=== PATIENT | female | born 1930 | race Caucasian/White ===

== ENCOUNTER 2016-10-03 08:14 | Outpatient (CLI) | payer MEDICARE | END 2016-10-03 08:15 | disposition home or self-care (01) | DX: E78.00 Pure hypercholesterolemia, unspecified (principal); I10 Essential (primary) hypertension ==

== ENCOUNTER 2016-12-15 11:35 | Outpatient (CLI) | payer MEDICARE ==
--- NOTE | 2016-12-15 12:03 | XRAY Report ---
TWO VIEW CHEST: 12/15/2016 CLINICAL INDICATION: Recently diagnosed with pneumonia in [place], recurrent cough and chest disco mfort. FINDINGS: Frontal and lateral views of the chest are compared to previous films of 10/26/2012. The cardiac silhouette is within normal limits. There is patchy left basilar infiltrate and patchy ri ght upper lobe infiltrate present. No effusion or pneumothorax is seen. IMPRESSION: PATCHY BILATERAL INFILTRATES. JOB #: [id number] EXT JOB #:[id number]
== END 2016-12-15 11:36 | disposition home or self-care (01) ==
LOC: DI 11:35
PROVIDERS: ATTEND Family Medicine
DX: J18.9 Pneumonia, unspecified organism (principal)
CPT/HCPCS: 71020

== ENCOUNTER 2016-12-29 12:45 | Outpatient (CLI) | payer OTHER ==
--- NOTE | 2016-12-29 13:39 | XRAY Report ---
TWO VIEW CHEST: 12/29/2016 CLINICAL INDICATION: Pneumonia followup. COMPARISON: 12/15/2016. FINDINGS: Frontal and lateral views of the chest demonstrate a normal cardiac silhouette. Bilateral infiltrates are improving. No effusion or pneumothorax is present. IMPRESSION: IMPROVING BILATERAL INFILTRATES. JOB #: [id number] EXT JOB #:[id number]
== END 2016-12-29 12:46 | disposition home or self-care (01) ==
LOC: DI 12:45
PROVIDERS: ATTEND Internal Medicine
DX: J18.9 Pneumonia, unspecified organism (principal)
CPT/HCPCS: 71020

== ENCOUNTER 2017-01-29 08:55 | Outpatient (CLI) | payer MEDICARE ==
--- NOTE | 2017-01-29 16:57 | XRAY Report ---
CHEST PA AND LATERAL: 01/29/2017 CLINICAL HISTORY: Pneumonia. COMPARISON: 12/29/2016. FINDINGS: The bones show no significant abnormality. Mild pectus deformity of the sternum is seen. F ocal osteoarthritis is noted in the mid thoracic spine with anterior spur formation and mild disk spa ce narrowing. The heart and great vessels are normal. The mediastinum is not widened. The pulmonary parenchyma demo nstrates no significant abnormality. The previously noted parenchymal disease in the left lower lobe and left lingula appear improved especially on the lateral projection. IMPRESSION: FURTHER IMPROVEMENT IS NOTED IN THE LUNGS COMPARED TO PRECEDING EXAM DATED 12/29/2016 . RESOLUTION OF PREVIOUSLY NOTED PNEUMONIA IS NOTED. :9 JOB #: [id number] EXT JOB #:[id number]
== END 2017-01-29 23:59 | disposition home or self-care (01) ==
LOC: DI 08:55
PROVIDERS: ATTEND Internal Medicine
DX: J18.9 Pneumonia, unspecified organism (principal)
CPT/HCPCS: 71020

== ENCOUNTER 2018-02-01 18:26 | Emergency (ER) | payer MEDICARE ==
[2018-02-01] MEDS ORDERED: LIDOCAINE-EPINEPH-TETRACAINE 3 ML SYRINGE TOP ONE (19:34)
[2018-02-01] MEDS ORDERED: BUFFERED LIDOCAINE 10 ML SYRINGE ONE (19:55)
[2018-02-01] MEDS: TETANUS/DIPHTHERIA/PERTUSSIS 0.5 ML SYRINGE IM ONE (20:04)
--- NOTE | 2018-02-01 20:20 | ED Physician Documentation ---
History of Present Illness - Stated complaint Stated Complaint: R HAND LAC - Chief complaint Chief Complaint: Laceration - History obtained from History obtained from: Patient - Additonal information Additional information: 87-year-old female presents the emergency department for evaluation of a laceration on the back of her hand which occurred just prior to arrival. The patient cut her hand on a sharp piece of metal. The patient denies any loss of function or sensory changes in the hand. The patient's tetanus is not up-to- date. No other areas of pain. The bleeding currently is under control. Symptoms are described as mild Review of Systems Constitutional: denies: Fever Skin: reports: Laceration (s) Musculoskeletal: reports: Extremity pain. denies: Joint pain Neurologic: denies: Head injury Immunocompromised: denies: Chemotherapy PD PAST MEDICAL HISTORY - Past Medical History Past Medical History: Yes Cardiovascular: Hypertension, High cholesterol Musculoskeletal: Osteoarthritis - Past Surgical History Past Surgical History: Yes Ortho: Other /DOCUMENTATION NURSE: Other - Allergies Allergies/Adverse Reactions: Allergies Allergy/AdvReac Type Severity Reaction Status Date / Time Sulfa (Sulfonamide Allergy Rash Verified 02/01/18 18:37 Antibiotics) - Social History Does the pt smoke?: No Smoking Status: Never smoker Does the pt drink ETOH?: Yes ETOH Use: Wine Does the pt have substance abuse?: No - Immunizations Immunizations are current?: No Immunizations: TDAP >10years/unknown PD ED PE NORMAL - General General: Alert and oriented X 3, No acute distress, Well developed/nourished - HEENT HEENT: Atraumatic, PERRL, EOMI, Ears normal - Derm Derm: Other (The patient has a 3 cm laceration on the dorsal aspect of the right hand. The patient has full active range of motion of the hand) - Extremities Extremities: Other (The patient has full active range of motion of her hand, normal strength of hand, normal sensation of the hand, brisk cap refill. On exploration of the wound the tendon is exposed however there appears to be no tendon laceration) - Neuro Neuro: Alert and oriented X 3, Normal speech - Psych Psych: Normal mood Results - Vitals Vitals: Vital Signs - 24 hr 02/01/18 18:35 Temperature 36.8 C Heart Rate 86 Respiratory 16 Rate Blood Pressure 156/74 H O2 Saturation 98 Oxygen O2 Source Room air Procedures - Laceration (location) Hand right Wound type: Linear Neurovascular status: Sensory intact, Motor intact, Vascular intact Tendon involvement: Tendon intact. No: Tendon Injury Anesthesia: Lidocaine 1% Wound Preparation: Betadine, Irrigated copiously NS, Wound explored, To the base. No: FB identified, FB removed Skin layer closure: Nylon, Interrupted, Sutures - enter # (4), Other ( Horizontal mattress sutures) Other: Patient tolerated well Complexity: Simple PD MEDICAL DECISION MAKING - ED course ED course: The patient's wound did expose the tendon, however there is no evidence of tendon laceration. The wound was closed using retention sutures. The patient appears appropriate at this time for discharge home. I discussed warning signs and recommended returning to the emergency department immediately for any worsening or any concerns. - Sepsis Event Vital Signs: Vital Signs - 24 hr 02/01/18 18:35 Temperature 36.8 C Heart Rate 86 Respiratory 16 Rate Blood Pressure 156/74 H O2 Saturation 98 Oxygen O2 Source Room air Departure - Departure Disposition: 01 Home, Self Care Clinical Impression: Laceration Condition: Good Instructions: ED Laceration All Follow-Up: Santino Bertrand MD [Primary Care Provider] - Within 1 week (These have your sutures removed in 7-10 days) Comments: Please return to the emergency department for worsening symptoms or any concerns
[2018-02-01 20:33] VITALS: BP 143/57
== END 2018-02-01 20:33 | disposition home or self-care (01) ==
LOC: ED 18:26
DX: S61.411A Laceration without foreign body of right hand, initial encounter (principal); W45.8XXA Other foreign body or object entering through skin, initial encounter; I10 Essential (primary) hypertension; E78.00 Pure hypercholesterolemia, unspecified; Z23 Encounter for immunization
CPT/HCPCS: 12002; 90471; 99282; 99283

== ENCOUNTER 2018-04-03 14:42 | Outpatient (CLI) | payer MEDICARE ==
[2018-04-03 15:13] LABS: HGB - HEMOGLOBIN 12.5 g/dL (12.0-16.0); MEAN CORPUSCULAR HEMOGLOBIN 31.1 pg (27.0-31.0); MEAN CORPUSCULAR HGB CONC 34.7 g/dL (32.0-36.0); MEAN CORPUSCULAR VOLUME 89.6 fL (81.0-99.0); MEAN PLATELET VOLUME 7.6 fL (7.9-10.8); RED BLOOD COUNT 4.01 10^6/uL (4.20-5.40); RED CELL DISTRIBUTION WIDTH 13.1 % (12.0-15.0); WHITE BLOOD COUNT 4.6 x10^3/uL (4.8-10.8)
== END 2018-04-03 14:43 | disposition home or self-care (01) ==
LOC: LAB 14:42
PROVIDERS: ATTEND Ophthalmology
DX: H02.423 Myogenic ptosis of bilateral eyelids (principal)
CPT/HCPCS: 36415; 81599; 83519; 85027; 85651; 86140; 86255

== ENCOUNTER 2018-04-20 21:26 | Outpatient (CLI) | payer MEDICARE | END 2018-04-20 21:27 | disposition critical access hospital (66) | LOC: EMS 21:26 | PROVIDERS: ATTEND Surgery | DX: R07.81 Pleurodynia (principal); W10.9XXA Fall (on) (from) unspecified stairs and steps, initial encounter; Y92.009 Unspecified place in unspecified non-institutional (private) residence as the place of occurrence of the external cause | CPT/HCPCS: A0425; A0427 ==

== ENCOUNTER 2018-04-20 21:38 | Observation (INO) | payer MEDICARE ==
--- NOTE | 2018-04-20 22:55 | ED Physician Documentation ---
PD HPI TRUNK INJURY - Stated complaint Stated Complaint: FELL DOWN STAIRS - LEFT RIB PAIN - Chief complaint Chief Complaint: Trauma Ch/Bk - History obtained from History obtained from: Patient, EMS - History of Present Illness Location: Posterior chest, Left chest Type of injury: Fall Timing - onset: Today Timing - details: Abrupt onset Quality: Pain Worsened by: Moving, Palpating Where injury occured: Home Similar symptoms before: Has not had sx before Recently seen: Not recently seen - Additional information Additional information: patient is an 87 year old female who is brought in by ems after falling. patient states that she was walking up the stairs and miss stepped and fell backwards. Patient does not think that she had LOC but is unsure. patient takes 325 aspirin daily. patient reports that the worst pain in is her left back. Review of Systems Ten Systems: 10 systems reviewed and negative Cardiac: reports: Chest pain / pressure Musculoskeletal: reports: Extremity pain, Extremity swelling Neurologic: reports: LOC. denies: Confused, Altered mental status, Headache PD PAST MEDICAL HISTORY - Past Medical History Past Medical History: No Cardiovascular: Hypertension, High cholesterol Respiratory: None Neuro: None Endocrine/Autoimmune: None GI: None BAR USEFUL OR BUSSER: None : None HEENT: None Psych: None Musculoskeletal: Osteoarthritis Derm: None - Past Surgical History Past Surgical History: Yes Ortho: Other /BAR USEFUL OR BUSSER: Other - Allergies Allergies/Adverse Reactions: Allergies Allergy/AdvReac Type Severity Reaction Status Date / Time Sulfa (Sulfonamide Allergy Rash Verified 04/20/18 21:45 Antibiotics) - Social History Does the pt smoke?: No Smoking Status: Never smoker Does the pt drink ETOH?: Yes ETOH Use: Wine Does the pt have substance abuse?: No - Immunizations Immunizations are current?: No Immunizations: TDAP >10years/unknown - POLST Patient has POLST: No PD ED PE NORMAL - Vitals Vital signs reviewed: Yes - General General: Alert and oriented X 3 - HEENT HEENT: Atraumatic, Moist mucous membranes - Cardiac Cardiac: RRR - Abdomen Abdomen: Soft - Neuro Neuro: Alert and oriented X 3, No motor deficit, Normal speech Eye Opening: Spontaneous Motor: Obeys Commands Verbal: Oriented GCS Score: 15 PD ED PE EXPANDED - Neck Neck: Bony TTP - Cardiac Cardiac: Chest wall TTP (tenderness to palpation of posterior chest on the left) - Extremities Extremities: Left leg (ecchymosis of left cormier with no tenderness) Results - Vitals Vitals: Vital Signs - 24 hr 04/20/18 04/20/18 21:38 22:49 Temperature 36.5 C Heart Rate 89 80 Respiratory 20 20 Rate Blood Pressure 186/81 H 156/73 H O2 Saturation 94 97 Oxygen O2 Source Room air - EKG (time done) 2145 Rate: Rate (enter#) (83) Rhythm: NSR Pheba: LAD Intervals: Normal OH QRS: Normal Ischemia: Normal ST segments - Rads (name of study) ct head Radiology: Final report received (normal) ct cervical spine Radiology: Final report received (no acute fracture or dislocation) left rib series Radiology: Final report received, Discussed with rads (7th rib fracture with apical pneumo) PD MEDICAL DECISION MAKING - ED course Complexity details: reviewed old records, reviewed results, re-evaluated patient, considered differential, d/w patient, d/w device sales consultant ED course: Patient was seen and examined at bedside. patient had already been treated for pain. ekg was performed and was normal sinus. imaging was ordered. When patient returned from imaging she was still in pain and treated with morphine 4mg and lidoderm patch. radiologist called and stated there was a left posterior 7th rib fracture and a small pneumo. Case was discussed with contract admin hospitalist and patient was placed in observation for further care. - Sepsis Event Vital Signs: Vital Signs - 24 hr 04/20/18 04/20/18 21:38 22:49 Temperature 36.5 C Heart Rate 89 80 Respiratory 20 20 Rate Blood Pressure 186/81 H 156/73 H O2 Saturation 94 97 Oxygen O2 Source Room air Departure - Departure Disposition: ED Place in Observation Clinical Impression: Fracture of rib, Pneumothorax on left Condition: Good
--- NOTE | 2018-04-20 22:55 | XRAY Report ---
Reason: fall, left sided posterior rib pain Procedure Date: 04/20/2018 Accession Number: [id number] / [id number] Procedure: XR - Ribs w/PA Chest LT CPT Code: FULL RESULT: EXAM: LEFT RIB RADIOGRAPHY EXAM DATE: 04/20/2018 10:47 PM. CLINICAL HISTORY: Fall, left sided posterior rib pain. COMPARISON: CHEST 2 VIEW PA/LAT 01/29/2017 9:00 AM. TECHNIQUE: 1 view of the chest and 2 views of the ribs. FINDINGS: Bones: There is fracture through the posterior left seventh rib. Lungs: No focal opacities. No pneumothorax. No pleural effusions. Mediastinum: Heart and mediastinal contours are unremarkable. Other: None. IMPRESSION: 1. There is fracture through the posterior left seventh rib. 2. No evidence of focal infiltrate or pneumothorax. RADIA
--- NOTE | 2018-04-20 23:00 | CT Report ---
Reason: fall possible loc Procedure Date: 04/20/2018 Accession Number: [id number] / [id number] Procedure: CT - Head W/O CPT Code: FULL RESULT: EXAM: CT HEAD EXAM DATE: 04/20/2018 10:46 PM. CLINICAL HISTORY: Follow-up. COMPARISON: CERVICAL SPINE W/O 04/20/2018 10:15 PM. TECHNIQUE: Multiaxial CT images were obtained from the foramen magnum to the vertex. Reformats: Sagittal and coronal. IV contrast: None. In accordance with CT protocol optimization, one or more of the following dose reduction techniques were utilized for this exam: automated exposure control, adjustment of mA and/or KV based on patient size, or use of iterative reconstructive technique. FINDINGS: Parenchyma: No intraparenchymal hemorrhage. No evidence of mass, midline shift, or CT findings of infarction. Gallardo-white differentiation is distinct. Periventricular white matter hypodensity may represent small vessel ischemic disease. Extraaxial Spaces: Normal for age. No subdural or epidural collections identified. Ventricles: Normal in size and position. Sinuses and Orbits: Imaged paranasal sinuses, orbits, and mastoids show no significant abnormality. Bones: No evidence of fracture or calvarial defect. Other: There is mild posterior left scalp soft tissue swelling. IMPRESSION: No acute intracranial CT abnormality. RADIA
--- NOTE | 2018-04-20 23:08 | CT Report ---
Reason: fall, distracting injury Procedure Date: 04/20/2018 Accession Number: [id number] / [id number] Procedure: CT - Cervical Spine W/O CPT Code: FULL RESULT: EXAM: CT CERVICAL SPINE WITHOUT CONTRAST DATE: 04/20/2018 10:45 PM. HISTORY: Fall, distracting injury. COMPARISONS: RIBS W/PA CHEST LT 04/20/2018 10:23 PM. TECHNIQUE: Thin-section axial images were acquired of the cervical spine without contrast. Post-processing: Coronal and sagittal reformats. Other: None. In accordance with CT protocol optimization, one or more of the following dose reduction techniques were utilized for this exam: automated exposure control, adjustment of mA and/or KV based on patient size, or use of iterative reconstructive technique. FINDINGS: Alignment: No evidence of dislocation. Bones: No fracture or bone lesion. Interspace Levels/Facets: No evidence of significant degenerative disease. Musculature: No significant abnormalities are seen. Other: There is a small left apical pneumothorax. IMPRESSION: 1. No evidence of cervical spine fracture or dislocation. 2. There is a small left apical pneumothorax. RADIA The above findings were discussed with Bob Owen by Dr. Jelani Coates at 23:07 hrs on 04/20/18.
[2018-04-20] MEDS ORDERED: MORPHINE 2 MG/ML CARPUJECT IVP STA (23:18)
[2018-04-20] MEDS ORDERED: LIDOCAINE PATCH 5% TOP STA (23:19)
[2018-04-21] MEDS ORDERED: ACETAMINOPHEN 325 MG TABLET PO PRN (00:02)
[2018-04-21] MEDS ORDERED: SODIUM CHLORIDE FLUSH 0.9% 10 ML SYRINGE IVP PRN (00:02)
--- NOTE | 2018-04-21 00:14 | CONSULTATION NOTE ---
Referring Provider Name of Referring Provider:: MD Lexie Consult Date: 04/20/18 Chief Complaint - Chief Complaint Chief Complaint: LEFT rib fracture and small apical pneumothorax History of Present Illness - Admitted From Admitted From:: Not admitted placed in observation from [facility] ED - History Obtained From Records Reviewed: Yes History obtained from: Patient, chart and Dr. Owen Exam Limitations: None - History of Present Illness HPI Comment/Other: Dr. Owen called and asked that I place this patient in observation for her left rib fracture associated with a small left apical pneumothorax. The patient was going up 4 steps when she fell ending up on the hard wood floor of her kitchen. She states she did not lose consciousness but does not remember the entirety of the fall. She worked her way to the kitchen table and got up. She finished washing the dishes but was in considerable pain. Following washing the dishes she got her cane and went back up those 4 steps climbing into bed. She was thinking that if she got some sleep that tomorrow morning she would be much better. She then thought about the situation more and realized that she got up several times a night normally to urinate and that she could not do it in the amount of pain that she was then. She then called her [id number] who live nearby who brought her to the emergency department in his car. In getting into the car she realized she never could have made it until the next morning. Her current complaint is back pain at the area of the rib fracture. Otherwise she is thirsty and denies nausea, vomiting, abdominal pain, loss of consciousness, headache, or change in her mentation. Her left eye is clearly different than her right. She states that she is currently under the care of 3 ophthalmologists and they cannot figure out what the problem is. History - Past Medical History Cardiovascular: reports: Hypertension, High cholesterol Respiratory: reports: None Neuro: reports: None Endocrine/Autoimmune: reports: None GI: reports: None PHARMACY BILLING ADJUDICATOR: reports: None : reports: None HEENT: reports: None Psych: reports: None Musculoskeletal: reports: Osteoarthritis Derm: reports: None MRSA Hx?: No - Past Surgical History Ortho: reports: Other /PHARMACY BILLING ADJUDICATOR: reports: Other - POLST Patient has POLST: No Meds/Allgy - Allergies Allergies/Adverse Reactions: Allergies Allergy/AdvReac Type Severity Reaction Status Date / Time Sulfa (Sulfonamide Allergy Rash Verified 04/20/18 21:45 Antibiotics) Review of Systems - Constitutional Constitutional: denies: Fatigue, Fever, Chills, Malaise - Eyes Eyes: reports: Blurred vision (Left eye but she can still see me with the right eye covered.). denies: Pain - Ears, Nose & Throat Ears, Nose & Throat: denies: Ear pain - Cardiovascular Cariovascular: denies: Irregular heart rate, Palpitations, Chest pain - Respiratory Respiratory: denies: Cough, Sputum production, Wheezing, Snoring - Gastrointestinal Gastrointestinal: denies: Abdominal pain, Abdominal distention - Musculoskeletal Musculoskeletal: reports: Back pain (At the area of her rib fracture.) - Integumentary Integumentary: denies: Rash - Neurological Neurological: denies: General weakness, Focal weakness, Headache, Numbness - Hematologic/Lymphatic Hematologic/Lymphatic: denies: Anemia Exam - Vital Signs Reviewed Vital Signs: Yes Vital Signs: Vital Signs x48h Temp Pulse Resp BP Pulse Ox 04/20/18 22:49 80 20 156/73 H 97 04/20/18 21:38 36.5 C 89 20 186/81 H 94 - Physical Exam General Appearance: positive: No acute distress Eyes Bilateral: positive: No lid inflammation, Conjunctivae nml, No scleral icterus ENT: positive: Dry mucous membranes Neck: positive: Trachea midline Respiratory: positive: Chest non-tender, No respiratory distress, Breath sounds nml Cardiovascular: positive: Regular rate & rhythm Abdomen: positive: Non-tender, No organomegaly, Nml bowel sounds, No distention Skin: positive: Color nml Extremities: positive: Other (Bruising in the left leg down near the ankle anteriorly and laterally.) Neurologic/Psychiatric: positive: Oriented x3 Conclusion/Plan - Diagnosis Diagnosis: Left seventh rib fracture posteriorly associated with a small apical pneumothorax. - Plan Plan: Place her in observation. The patient states that she wants to be home in time for the [employer] game tomorrow at 1 in the afternoon. I explained that I would check labs and x-rays on her in the morning and if these look okay she can be discharged home with a follow-up with me in a week. If her labs or x-rays are worse then I would deputy general counsel her against going home. IV fluids and clear liquids have been written for. Pain medication has been written for. Proton pump inhibition has been written for. Teds and Venodyne's have been written for for prophylaxis against deep venous thrombosis. I asked the patient to let us know if there is any way we can make her stay here [facility] more comfortable to please let us know when she stated that she would. 45 minutes of kxcw-sm-tocs time spent with the patient, the majority of which was spent in discussion, coordination of care, and completion of the requisite paperwork Dragon disclaimer: This document was created in part using voice recognition technology. Because of the inherent limitations of the system ([employer] Dictate user manual states that the licensee understands that speech recognition is a statistical process and that recognition errors are inherent in the process), occasional same sounding word substitutions and grammatical errors do occur and persist despite proofreading. Please read this document for context. - Diagnostic Imaging Results Diagnostic Imaging Results: positive: Final report reviewed, Read independently - EKG Results EKG Interpreted Independently: No
[2018-04-21] MEDS ORDERED: D5NS W/20 MEQ KCL 1,000 ML IV SCH (01:00)
[2018-04-21] MEDS: SODIUM CHLORIDE FLUSH 0.9% 10 ML SYRINGE IVP SCH ×2 (01:24→08:08)
[2018-04-21] MEDS: HYDROmorphone 0.5 MG/0.5 ML SYRINGE IVP PRN ×2 (01:24→05:46)
[2018-04-21 04:35] LABS: BASOPHILS % (AUTO) 0.5 %; EOSINOPHILS % (AUTO) 0.1 %; HGB - HEMOGLOBIN 10.9 g/dL (12.0-16.0); LYMPHOCYTES # (AUTO) 0.9 10^3/uL (1.5-3.5); MEAN CORPUSCULAR HEMOGLOBIN 30.8 pg (27.0-31.0); MEAN CORPUSCULAR HGB CONC 34.2 g/dL (32.0-36.0); MEAN CORPUSCULAR VOLUME 89.8 fL (81.0-99.0); MONOCYTES # (AUTO) 0.6 10^3/uL (0.0-1.0); MONOCYTES % (AUTO) 7.5 %; NEUTROPHILS # (AUTO) 5.9 10^3/uL (1.5-6.6); NEUTROPHILS % (AUTO) 79.9 %; PLT - PLATELET COUNT 216 10^3/uL (130-450); RED BLOOD COUNT 3.54 10^6/uL (4.20-5.40); RED CELL DISTRIBUTION WIDTH 12.9 % (12.0-15.0); WHITE BLOOD COUNT 7.4 x10^3/uL (4.8-10.8)
[2018-04-21 04:48] LABS: ALBUMIN 3.3 g/dL (3.2-5.5); ALBUMIN/GLOBULIN RATIO 1.2 (1.0-2.2); BILIRUBIN,TOTAL 0.5 mg/dL (0.2-1.0); CALCIUM 8.7 mg/dL (8.5-10.3); CREATININE 0.9 mg/dL (0.4-1.0); TOTAL PROTEIN 6.1 g/dL (6.7-8.2)
[2018-04-21] MEDS: HYDROcod/ACETAM 5/325 MG TABLET PO PRN ×2 (06:15→11:01)
[2018-04-21] MEDS ORDERED: PANTOPRAZOLE 40 MG TABLET PO SCH (07:00)
[2018-04-21] MEDS ORDERED: POLYETHYLENE GLYCOL 3350 17 GM PACKET PO SCH (09:00)
--- NOTE | 2018-04-21 09:05 | XRAY Report ---
Reason: Apical pneumothorax - larger? Procedure Date: 04/21/2018 Accession Number: [id number] / [id number] Procedure: XR - Chest 2 View X-Ray CPT Code: 76980 FULL RESULT: EXAM: CHEST RADIOGRAPHY EXAM DATE: 04/21/2018 08:17 AM. CLINICAL HISTORY: Known left apical pneumothorax - larger?. COMPARISON: Chest radiograph 04/20/[address] cervical spine 04/20/2018 2215 hrs. TECHNIQUE: 2 views. FINDINGS: Lungs/Pleura: Minimal left basal opacity, probably atelectasis. Lungs are otherwise clear. There is a probable minimal left apical pneumothorax probably similar to that seen on the comparison CT cervical spine. Mediastinum: Heart and mediastinal contours are unremarkable. Other: Acute mildly displaced fractures of the left posterior seventh and eighth ribs. IMPRESSION: 1. Minimal left apical pneumothorax is probably similar to that seen on the comparison CT cervical spine. 2. Minimal left basal opacity, probably atelectasis. 3. Left-sided rib fractures. RADIA
--- NOTE | 2018-04-21 11:07 | DISCHARGE SUMMARY ---
"Discharge Summary Admit Date: 04/20/18 Discharge Date: 04/21/18 Discharging Provider: Kyle Peterson MD Primary Care Provider: Santino Bertrand Code Status: Attempt Resuscitation Condition at Discharge: Good Discharge Disposition: 01 Home, Self Care - DIAGNOSES Admission Diagnoses: Fall resulting in LEFT rib fractures and small LEFT apical pneumothorax Discharge Diagnoses with Status of Each Condition: Repeat chest x-ray defined LEFT 7th and 8th rib fractures non-displaced and LEFT apical pneumothorax stable - HPI History of Present Illness: 87 year old fell about 12 hours ago sustaining the injuries detailed above. Observed to ensure that pneumothorax did not worsen. It did not. - CONSULTS | PROCEDURES Consultations: Al Procedures: None. - HOSPITAL COURSE Hospital Course: See above. - ALLERGIES Allergies/Adverse Reactions: Allergies Allergy/AdvReac Type Severity Reaction Status Date / Time Sulfa (Sulfonamide Allergy Rash Verified 04/20/18 21:45 Antibiotics) - MEDICATIONS Home Medications: Ambulatory Orders Medication Instructions Recorded Confirmed Docusate Sodium 250Mg Capsule 250 mg PO DAILY #10 capsule 04/21/18 [Colace 250Mg Capsule] Hydrocodone/Acetaminophen [[place] 1 each PO Q4H #20 tablet 04/21/18 5-325 Tablet] - PHYSICAL EXAM AT DISCHARGE General Appearance: positive: No acute distress Eyes Bilateral: positive: No lid inflammation, Conjunctivae nml, No scleral icterus ENT: positive: No signs of dehydration Neck: positive: Trachea midline Respiratory: positive: Other (Tender left posterior commesurate with rib fractures.) Cardiovascular: positive: Regular rate & rhythm Abdomen: positive: Non-tender, No organomegaly, Nml bowel sounds, No distention Skin: positive: Color nml Extremities: positive: Other (Ecchymosis at LEFT lower leg just above ankle.) Neurologic/Psychiatric: positive: Oriented x3 (Wants to get home in time for [employer] game.) - LABS Result Diagrams: 04/21/18 04:10 04/21/18 04:10"
--- NOTE | 2018-04-21 11:11 | Discharge Plan ---
Discharge Plan Disposition: Home, Self Care Condition: Good Prescriptions: Docusate Sodium 250Mg Capsule [Colace 250Mg Capsule] 250 mg PO DAILY #10 capsule Hydrocodone/Acetaminophen [[place] 5-325 Tablet] 1 each PO Q4H #20 tablet Diet: Regular Activity Restrictions: No Restrictions Shower Restrictions: No Driving Restrictions: Yes (Until cleared by me or primary physician.) Assistance Devices: Other (Patient has a cane at home.) Weight Bearing: Full Weight No Smoking: If you smoke, Please STOP! Call for help. Follow-up with: Santino Bertrand MD [Primary Care Provider] - Kyle Peterson MD [Provider Admit Priv/Credential] -
[2018-04-21 11:26] VITALS: BP 143/72
== END 2018-04-21 11:38 | disposition home or self-care (01) ==
LOC: EDBD → EDUNIT# → ED 21:38 → MS3 04-21 00:02
PROVIDERS: ADMIT Surgery; ATTEND Surgery
DX: S27.0XXA Traumatic pneumothorax, initial encounter (principal); S22.42XA Multiple fractures of ribs, left side, initial encounter for closed fracture; S80.12XA Contusion of left lower leg, initial encounter; W10.9XXA Fall (on) (from) unspecified stairs and steps, initial encounter; Y92.000 Kitchen of unspecified non-institutional (private) residence as the place of occurrence of the external cause; I10 Essential (primary) hypertension; H53.8 Other visual disturbances; Z79.82 Long term (current) use of aspirin
CPT/HCPCS: 36415; 70450; 71046; 71101; 72125; 80053; 85025; 93005; 96361; 96374; 96375; 96376; 99284; A9270; G0378; J1170

== ENCOUNTER 2018-09-11 15:48 | Outpatient (CLI) | payer MEDICARE ==
--- NOTE | 2018-09-12 08:32 | XRAY Report ---
Reason: DORSALGIA,UNSPECIFIED Procedure Date: 09/11/2018 Accession Number: [id number] / [id number] Procedure: XR - Thoracic Spine 2 View CPT Code: FULL RESULT: EXAM: THORACIC SPINE RADIOGRAPHY EXAM DATE: 09/11/2018 04:19 PM. CLINICAL HISTORY: Dorsalgia, unspecified. COMPARISON: Chest 2 view 04/21/2018 7:40 AM. TECHNIQUE: 2 views. FINDINGS: Alignment: No spondylolisthesis or discrete scoliosis. Bones: The mild anterior compression fracture at T6, T7, and T8 with overall kyphosis of 36 degrees is again noted, quite similar to the prior lateral view of the chest x-ray. No new compression fracture recognized. Disks: Moderate degenerative disk disease at T7-T8 again noted, minimal interval changes. Soft Tissues: The visualized lungs and cardiomediastinal again demonstrated elevated right hemidiaphragm, post-op change of the cholecystectomy without significant interval changes. IMPRESSION: No significant interval change of the mild anterior compression fracture at T6, T7 and T8 with 36 degrees kyphosis. RADIA
== END 2018-09-11 15:49 | disposition home or self-care (01) ==
LOC: DI 15:48
PROVIDERS: ATTEND Internal Medicine
DX: M48.54XA Collapsed vertebra, not elsewhere classified, thoracic region, initial encounter for fracture (principal); M40.204 Unspecified kyphosis, thoracic region
CPT/HCPCS: 72070

== ENCOUNTER 2019-03-25 13:16 | Outpatient (CLI) | payer MEDICARE ==
[2019-03-25 13:38] LABS: BASOPHILS # (AUTO) 0.1 10^3/uL (0.0-0.1); BASOPHILS % (AUTO) 0.8 %; EOSINOPHILS # (AUTO) 0.1 10^3/uL (0.0-0.7); EOSINOPHILS % (AUTO) 2.2 %; HGB - HEMOGLOBIN 10.8 g/dL (12.0-16.0); LYMPHOCYTES # (AUTO) 1.1 10^3/uL (1.5-3.5); MEAN CORPUSCULAR HEMOGLOBIN 29.4 pg (27.0-31.0); MEAN CORPUSCULAR HGB CONC 32.6 g/dL (32.0-36.0); MEAN CORPUSCULAR VOLUME 90.2 fL (81.0-99.0); MEAN PLATELET VOLUME 9.2 fL (7.9-10.8); MONOCYTES # (AUTO) 0.5 10^3/uL (0.0-1.0); MONOCYTES % (AUTO) 7.3 %; NEUTROPHILS # (AUTO) 4.6 10^3/uL (1.5-6.6); NEUTROPHILS % (AUTO) 72.4 %; PLT - PLATELET COUNT 275 10^3/uL (130-450); RED BLOOD COUNT 3.67 10^6/uL (4.20-5.40); RED CELL DISTRIBUTION WIDTH 13.2 % (12.0-15.0); WHITE BLOOD COUNT 6.3 x10^3/uL (4.8-10.8)
[2019-03-25 14:08] LABS: HB2 TOTAL 11.1 g/dL; HEMOGLOBIN A1C 0.42 g/dL; HEMOGLOBIN A1C % 5.6 % (4.6-6.2)
[2019-03-25 14:14] LABS: THYROID STIMULATING HORMONE 1.87 uIU/mL (0.34-5.60)
[2019-03-25 14:16] LABS: FREE T4 (FREE THYROXINE) 0.81 ng/dL (0.58-1.64)
== END 2019-03-25 13:17 | disposition home or self-care (01) ==
LOC: LAB 13:16
PROVIDERS: ATTEND Family Medicine
DX: R53.81 Other malaise (principal)
CPT/HCPCS: 36415; 83036; 84439; 84443; 85025

== ENCOUNTER 2019-04-08 12:11 | Outpatient (CLI) | payer MEDICARE ==
[2019-04-08 12:34] LABS: BASOPHILS % (AUTO) 0.7 %; EOSINOPHILS # (AUTO) 0.1 10^3/uL (0.0-0.7); EOSINOPHILS % (AUTO) 1.9 %; HGB - HEMOGLOBIN 10.9 g/dL (12.0-16.0); LYMPHOCYTES # (AUTO) 0.8 10^3/uL (1.5-3.5); LYMPHOCYTES % (AUTO) 15.5 %; MEAN CORPUSCULAR HEMOGLOBIN 29.6 pg (27.0-31.0); MEAN CORPUSCULAR HGB CONC 32.2 g/dL (32.0-36.0); MEAN CORPUSCULAR VOLUME 92.1 fL (81.0-99.0); MEAN PLATELET VOLUME 8.9 fL (7.9-10.8); MONOCYTES # (AUTO) 0.5 10^3/uL (0.0-1.0); MONOCYTES % (AUTO) 8.6 %; NEUTROPHILS # (AUTO) 3.9 10^3/uL (1.5-6.6); NEUTROPHILS % (AUTO) 73.1 %; PLT - PLATELET COUNT 254 10^3/uL (130-450); RED BLOOD COUNT 3.68 10^6/uL (4.20-5.40); RED CELL DISTRIBUTION WIDTH 13.2 % (12.0-15.0); WHITE BLOOD COUNT 5.3 x10^3/uL (4.8-10.8)
[2019-04-08 12:51] LABS: CALCIUM 8.9 mg/dL (8.5-10.3); CREATININE 0.9 mg/dL (0.4-1.0)
[2019-04-08 13:00] LABS: HEMOGLOBIN A1C 0.39 g/dL; HEMOGLOBIN A1C % 5.4 % (4.6-6.2)
[2019-04-08 16:06] LABS: BILIRUBIN,URINE NEGATIVE (NEGATIVE); GLUCOSE, URINE (UA) NEGATIVE (NEGATIVE); KETONES,URINE (UA) NEGATIVE (NEGATIVE); LEUKOCYTE ESTERASE, URINE NEGATIVE (NEGATIVE); NITRITE,URINE NEGATIVE (NEGATIVE); OCCULT BLOOD,URINE SMALL (NEGATIVE); PH,URINE 5.5 PH (5.0-7.5); PROTEIN,URINE NEGATIVE (NEGATIVE); UROBILINOGEN,URINE 0.2 (NORMAL) E.U./dL (NORMAL)
[2019-04-08 16:08] LABS: CLARITY,URINE CLEAR (CLEAR)
[2019-04-08 16:23] LABS: BACTERIA,URINE Few /HPF (None Seen); CRYSTALS,URINE 26-50 Ca Oxalate /LPF; MUCUS,URINE Few Strands; RBC,URINE 0-5 /HPF (0-5); SQUAMOUS EPITHELIAL CELL,UR FEW Squamous (<= Few)
== END 2019-04-08 12:12 | disposition home or self-care (01) ==
LOC: LAB 12:11
PROVIDERS: ATTEND Orthopaedic Surgery
DX: Z01.818 Encounter for other preprocedural examination (principal); Z13.1 Encounter for screening for diabetes mellitus; R73.9 Hyperglycemia, unspecified; N39.9 Disorder of urinary system, unspecified
CPT/HCPCS: 36415; 80048; 81001; 81003; 83036; 85025; 93005

== ENCOUNTER 2019-06-26 13:59 | Outpatient (CLI) | payer MEDICARE ==
[2019-06-26 14:12] LABS: ABSOLUTE RETICS # AUTO 0.074 10^6/uL (0.020-0.110); BASOPHILS # (AUTO) 0.1 10^3/uL (0.0-0.1); BASOPHILS % (AUTO) 0.9 %; EOSINOPHILS # (AUTO) 0.1 10^3/uL (0.0-0.7); EOSINOPHILS % (AUTO) 1.7 %; HGB - HEMOGLOBIN 10.2 g/dL (12.0-16.0); LYMPHOCYTES % (AUTO) 14.5 %; MEAN CORPUSCULAR HEMOGLOBIN 30.2 pg (27.0-31.0); MEAN CORPUSCULAR HGB CONC 31.4 g/dL (32.0-36.0); MEAN CORPUSCULAR VOLUME 96.2 fL (81.0-99.0); MEAN PLATELET VOLUME 8.4 fL (7.9-10.8); MONOCYTES # (AUTO) 0.5 10^3/uL (0.0-1.0); MONOCYTES % (AUTO) 7.1 %; NEUTROPHILS # (AUTO) 5.2 10^3/uL (1.5-6.6); NEUTROPHILS % (AUTO) 75.2 %; PLT - PLATELET COUNT 399 10^3/uL (130-450); RED BLOOD COUNT 3.38 10^6/uL (4.20-5.40); RED CELL DISTRIBUTION WIDTH 13.6 % (12.0-15.0)
== END 2019-06-26 14:00 | disposition home or self-care (01) ==
LOC: LAB 13:59
PROVIDERS: ATTEND Family Medicine
DX: D64.9 Anemia, unspecified (principal)
CPT/HCPCS: 36415; 85025; 85045

== ENCOUNTER 2019-08-22 13:35 | Outpatient (CLI) | payer MEDICARE ==
--- NOTE | 2019-08-22 17:02 | XRAY Report ---
Reason: R ANKLE PAIN Procedure Date: 08/22/2019 Accession Number: [id number] / [id number] Procedure: XR - Ankle 3 View RT CPT Code: Final Report FULL RESULT: EXAM: RIGHT ANKLE RADIOGRAPHY EXAM DATE: 08/22/2019 01:53 PM. CLINICAL HISTORY: R ANKLE PAIN. COMPARISON: None. TECHNIQUE: 3 views. FINDINGS: Bones: Normal. No fractures or bone lesions. Joints: Normal. No effusion. No subluxations. The ankle mortise is normally aligned. Soft Tissues: Normal. No soft tissue swelling. IMPRESSION: No acute displaced fracture or malalignment. RADIA
== END 2019-08-22 13:36 | disposition home or self-care (01) ==
LOC: DI 13:35
PROVIDERS: ATTEND Podiatrist
DX: M25.571 Pain in right ankle and joints of right foot (principal)

== ENCOUNTER 2019-09-03 14:31 | Outpatient (CLI) | payer MEDICARE ==
[2019-09-03 14:59] LABS: BASOPHILS # (AUTO) 0.1 10^3/uL (0.0-0.1); BASOPHILS % (AUTO) 0.7 %; BILIRUBIN,URINE NEGATIVE (NEGATIVE); EOSINOPHILS # (AUTO) 0.1 10^3/uL (0.0-0.7); EOSINOPHILS % (AUTO) 0.8 %; GLUCOSE, URINE (UA) NEGATIVE (NEGATIVE); HGB - HEMOGLOBIN 10.7 g/dL (12.0-16.0); KETONES,URINE (UA) NEGATIVE (NEGATIVE); LEUKOCYTE ESTERASE, URINE TRACE (NEGATIVE); LYMPHOCYTES # (AUTO) 0.9 10^3/uL (1.5-3.5); LYMPHOCYTES % (AUTO) 10.3 %; MEAN CORPUSCULAR HEMOGLOBIN 30.5 pg (27.0-31.0); MEAN CORPUSCULAR HGB CONC 32.6 g/dL (32.0-36.0); MEAN CORPUSCULAR VOLUME 93.4 fL (81.0-99.0); MEAN PLATELET VOLUME 8.9 fL (7.9-10.8); MONOCYTES # (AUTO) 0.6 10^3/uL (0.0-1.0); MONOCYTES % (AUTO) 6.9 %; NEUTROPHILS # (AUTO) 7.2 10^3/uL (1.5-6.6); NEUTROPHILS % (AUTO) 80.7 %; NITRITE,URINE NEGATIVE (NEGATIVE); OCCULT BLOOD,URINE LARGE (NEGATIVE); PH,URINE 5.5 PH (5.0-7.5); PLT - PLATELET COUNT 395 10^3/uL (130-450); PROTEIN,URINE TRACE mg/dL (NEGATIVE); RED BLOOD COUNT 3.51 10^6/uL (4.20-5.40); RED CELL DISTRIBUTION WIDTH 11.8 % (12.0-15.0); UROBILINOGEN,URINE 0.2 (NORMAL) E.U./dL (NORMAL); WHITE BLOOD COUNT 8.9 x10^3/uL (4.8-10.8)
[2019-09-03 15:10] LABS: BACTERIA,URINE Few /HPF (None Seen); CLARITY,URINE CLEAR (CLEAR); MUCUS,URINE Few Strands; SQUAMOUS EPITHELIAL CELL,UR FEW Squamous (<= Few)
[2019-09-03 15:16] LABS: ALBUMIN 3.6 g/dL (3.2-5.5); ALBUMIN/GLOBULIN RATIO 0.8 (1.0-2.2); BILIRUBIN,TOTAL 0.7 mg/dL (0.2-1.0); CALCIUM 9.5 mg/dL (8.5-10.3); CRP - C-REACTIVE PROTEIN 14.4 mg/dL (0-1.0); TOTAL PROTEIN 8.1 g/dL (6.7-8.2)
== END 2019-09-03 14:32 | disposition home or self-care (01) ==
LOC: LAB 14:31
PROVIDERS: ATTEND Family Medicine
DX: R10.9 Unspecified abdominal pain (principal)
CPT/HCPCS: 36415; 80053; 81001; 85025; 85651; 86140; 87086

== ENCOUNTER 2019-09-05 15:04 | Outpatient (CLI) | payer MEDICARE ==
[2019-09-05] MEDS ORDERED: IOVERSOL 320 100 ML VIAL IVP ONE ×2 (15:13→17:08)
[2019-09-05] MEDS ORDERED: IOVERSOL 320 50 ML VIAL ONE (15:13)
[2019-09-05] MEDS ORDERED: IOVERSOL 320 50 ML VIAL PO ONE (17:08)
--- NOTE | 2019-09-06 16:13 | CT Report ---
Reason: ABD PAIN Procedure Date: 09/05/2019 Accession Number: [id number] / [id number] Procedure: CT - Abdomen/Pelvis W CPT Code: Final Report FULL RESULT: EXAM: CT ABDOMEN AND PELVIS EXAM DATE: 09/05/2019 04:58 PM. CLINICAL HISTORY: ABD PAIN. COMPARISONS: CHEST 2 VIEW 04/21/2018 7:40 AM. TECHNIQUE: Routine helical CT imaging was performed through the abdomen and pelvis. IV contrast: OPTIRAY 320, 100 mL. Enteric contrast: yes. Reconstructions: Coronal and sagittal. In accordance with CT protocol optimization, one or more of the following dose reduction techniques were utilized for this exam: automated exposure control, adjustment of mA and/or KV based on patient size, or use of iterative reconstructive technique. FINDINGS: Lung Bases: Reticular opacities bilateral lower lobes with peripheral honeycombing. More focal nodule in the right lower lobe measures 7 mm (axial image 2). Liver: No masses. Gallbladder/Bile Ducts: Cholecystectomy. Spleen: Normal. Pancreas: Normal. Adrenal Glands: Normal. Kidneys: Prominent bilateral renal pelvis, suggestive of extrarenal pelvis. Bilateral ureters appear unremarkable. Urinary bladder is moderately distended. Peritoneal Cavity/Bowel: No free fluid, free air or adenopathy. No evidence for small bowel obstruction. The appendix is well visualized and normal. Tortuous colon with scattered diverticulosis, without evidence for acute diverticulitis. Pelvic Organs: Suggestion of soft tissue fullness in region of vagina. Vasculature: Severe atherosclerosis of the abdominal aorta. Bones: Grade 1 spondylolisthesis of L4 on L5. Other: None. IMPRESSION: 1. Reticular opacities bilateral lower lobes with right lower lobe pulmonary nodule, in the setting of fibrosis. Recommend dedicated CT chest without IV contrast for further evaluation. 2. Suggestion of soft tissue fullness in region of vagina. Recommend direct visualization. 3. Moderate distention urinary bladder. RADIA
== END 2019-09-05 15:05 | disposition home or self-care (01) ==
LOC: DI 15:04
PROVIDERS: ATTEND Family Medicine
DX: R91.8 Other nonspecific abnormal finding of lung field (principal); J84.10 Pulmonary fibrosis, unspecified; N32.89 Other specified disorders of bladder
CPT/HCPCS: 74177; Q9967

== ENCOUNTER 2019-09-26 10:03 | Outpatient (CLI) | payer MEDICARE ==
[2019-09-26 10:33] LABS: BASOPHILS # (AUTO) 0.1 10^3/uL (0.0-0.1); BASOPHILS % (AUTO) 0.7 %; EOSINOPHILS # (AUTO) 0.2 10^3/uL (0.0-0.7); EOSINOPHILS % (AUTO) 3.4 %; HGB - HEMOGLOBIN 9.4 g/dL (12.0-16.0); LYMPHOCYTES # (AUTO) 0.9 10^3/uL (1.5-3.5); LYMPHOCYTES % (AUTO) 13.7 %; MEAN CORPUSCULAR HGB CONC 30.7 g/dL (32.0-36.0); MEAN CORPUSCULAR VOLUME 94.4 fL (81.0-99.0); MEAN PLATELET VOLUME 9.3 fL (7.9-10.8); MONOCYTES # (AUTO) 0.4 10^3/uL (0.0-1.0); MONOCYTES % (AUTO) 5.9 %; NEUTROPHILS # (AUTO) 5.1 10^3/uL (1.5-6.6); PLT - PLATELET COUNT 430 10^3/uL (130-450); RED BLOOD COUNT 3.24 10^6/uL (4.20-5.40); RED CELL DISTRIBUTION WIDTH 12.5 % (12.0-15.0); WHITE BLOOD COUNT 6.7 x10^3/uL (4.8-10.8)
[2019-09-26 11:06] LABS: CRP - C-REACTIVE PROTEIN 8.5 mg/dL (0-1.0)
[2019-09-26 11:18] LABS: FERRITIN 119.2 ng/mL (11.0-306.8)
[2019-09-26 15:16] LABS: BILIRUBIN,URINE NEGATIVE (NEGATIVE); GLUCOSE, URINE (UA) NEGATIVE (NEGATIVE); KETONES,URINE (UA) NEGATIVE (NEGATIVE); LEUKOCYTE ESTERASE, URINE NEGATIVE (NEGATIVE); NITRITE,URINE NEGATIVE (NEGATIVE); OCCULT BLOOD,URINE LARGE (NEGATIVE); PROTEIN,URINE TRACE mg/dL (NEGATIVE); UROBILINOGEN,URINE 0.2 (NORMAL) E.U./dL (NORMAL)
[2019-09-26 15:39] LABS: BACTERIA,URINE None Seen /HPF (None Seen); CLARITY,URINE CLEAR (CLEAR); RBC,URINE TNTC /HPF (0-5); SQUAMOUS EPITHELIAL CELL,UR RARE Squamous (<= Few)
== END 2019-09-26 10:04 | disposition home or self-care (01) ==
LOC: LAB 10:03
PROVIDERS: ATTEND Family Medicine
DX: R53.83 Other fatigue (principal); R53.81 Other malaise; N39.0 Urinary tract infection, site not specified; D64.9 Anemia, unspecified; M19.90 Unspecified osteoarthritis, unspecified site
CPT/HCPCS: 36415; 81001; 81003; 82607; 82728; 82746; 83540; 84466; 85025; 85651; 86140; 87086

== ENCOUNTER 2019-11-11 08:00 | Outpatient (CLI) | payer MEDICARE ==
[2019-11-11 18:07] LABS: ABSOLUTE RETICS # AUTO 0.038 10^6/uL (0.020-0.110); BASOPHILS % (AUTO) 0.6 %; EOSINOPHILS # (AUTO) 0.2 10^3/uL (0.0-0.7); EOSINOPHILS % (AUTO) 2.8 %; HGB - HEMOGLOBIN 7.8 g/dL (12.0-16.0); LYMPHOCYTES % (AUTO) 14.7 %; MEAN CORPUSCULAR HEMOGLOBIN 28.6 pg (27.0-31.0); MEAN CORPUSCULAR HGB CONC 31.3 g/dL (32.0-36.0); MEAN CORPUSCULAR VOLUME 91.2 fL (81.0-99.0); MEAN PLATELET VOLUME 10.2 fL (7.9-10.8); MONOCYTES # (AUTO) 0.6 10^3/uL (0.0-1.0); MONOCYTES % (AUTO) 8.1 %; NEUTROPHILS # (AUTO) 5.2 10^3/uL (1.5-6.6); NEUTROPHILS % (AUTO) 73.4 %; PLT - PLATELET COUNT 328 10^3/uL (130-450); RED BLOOD COUNT 2.73 10^6/uL (4.20-5.40); RED CELL DISTRIBUTION WIDTH 14.8 % (12.0-15.0)
[2019-11-11 18:30] LABS: ALBUMIN 3.5 g/dL (3.2-5.5); ALBUMIN/GLOBULIN RATIO 0.9 (1.0-2.2); BILIRUBIN,TOTAL 0.5 mg/dL (0.2-1.0); CALCIUM 8.9 mg/dL (8.5-10.3); CREATININE 1.9 mg/dL (0.4-1.0); TOTAL PROTEIN 7.4 g/dL (6.7-8.2)
[2019-11-11 18:41] LABS: THYROID STIMULATING HORMONE 2.74 uIU/mL (0.34-5.60)
[2019-11-11 18:43] LABS: FREE T3 2.15 pg/mL (2.5-3.9); FREE T4 (FREE THYROXINE) 0.75 ng/dL (0.58-1.64)
[2019-11-11 18:48] LABS: FERRITIN 152.7 ng/mL (11.0-306.8)
== END 2019-11-11 23:59 | disposition home or self-care (01) ==
LOC: LAB.WCP 08:00
PROVIDERS: ATTEND Family Medicine
DX: D50.9 Iron deficiency anemia, unspecified (principal); R53.83 Other fatigue; Z96.651 Presence of right artificial knee joint; R53.81 Other malaise; I10 Essential (primary) hypertension
CPT/HCPCS: 36415; 80053; 82728; 83540; 84439; 84443; 84466; 84481; 85025; 85045

== ENCOUNTER 2019-11-28 11:52 | Outpatient (CLI) | payer MEDICARE ==
[2019-11-28 12:08] LABS: BASOPHILS % (AUTO) 0.5 %; EOSINOPHILS # (AUTO) 0.1 10^3/uL (0.0-0.7); EOSINOPHILS % (AUTO) 2.3 %; HGB - HEMOGLOBIN 7.6 g/dL (12.0-16.0); LYMPHOCYTES # (AUTO) 0.8 10^3/uL (1.5-3.5); MEAN CORPUSCULAR HEMOGLOBIN 29.6 pg (27.0-31.0); MEAN CORPUSCULAR HGB CONC 31.9 g/dL (32.0-36.0); MEAN CORPUSCULAR VOLUME 92.6 fL (81.0-99.0); MEAN PLATELET VOLUME 8.8 fL (7.9-10.8); MONOCYTES # (AUTO) 0.4 10^3/uL (0.0-1.0); MONOCYTES % (AUTO) 7.1 %; NEUTROPHILS # (AUTO) 4.3 10^3/uL (1.5-6.6); NEUTROPHILS % (AUTO) 75.6 %; PLT - PLATELET COUNT 305 10^3/uL (130-450); RED BLOOD COUNT 2.57 10^6/uL (4.20-5.40); RED CELL DISTRIBUTION WIDTH 15.8 % (12.0-15.0); WHITE BLOOD COUNT 5.6 x10^3/uL (4.8-10.8)
[2019-11-28 12:33] LABS: ALBUMIN 3.4 g/dL (3.2-5.5); ALBUMIN/GLOBULIN RATIO 0.9 (1.0-2.2); BILIRUBIN,TOTAL 0.5 mg/dL (0.2-1.0); CALCIUM 8.9 mg/dL (8.5-10.3); CREATININE 1.9 mg/dL (0.4-1.0); CRP - C-REACTIVE PROTEIN 2.3 mg/dL (0-1.0); TOTAL PROTEIN 7.4 g/dL (6.7-8.2)
== END 2019-11-28 11:53 | disposition home or self-care (01) ==
LOC: LAB 11:52
PROVIDERS: ATTEND Family Medicine
DX: D50.9 Iron deficiency anemia, unspecified (principal); R53.83 Other fatigue; R70.0 Elevated erythrocyte sedimentation rate
CPT/HCPCS: 36415; 80053; 82784; 83615; 83883; 84155; 84165; 85025; 86140

== ENCOUNTER 2020-01-12 10:26 | Day surgery (SDC) | payer MEDICARE ==
[2020-01-12] MEDS ORDERED: fentaNYL 250 MCG/5 ML VIAL IVP ONE (10:27)
[2020-01-12] MEDS ORDERED: MIDAZOLAM 2 MG/2 ML VIAL IVP ONE (10:27)
[2020-01-12] MEDS ORDERED: LACTATED RINGERS 1,000 ML IV ONE (10:30)
[2020-01-12] MEDS ORDERED: LIDO GARGLE 30 ML BOTTLE ONE (11:33)
[2020-01-12 12:52] VITALS: BP 148/82
== END 2020-01-12 10:27 | disposition home or self-care (01) ==
LOC: SDS 10:26
PROVIDERS: ATTEND Surgery
PROC: 0DJD8ZZ Inspection of Lower Intestinal Tract, Via Natural or Artificial Opening Endoscopic (ICD-10-PCS; principal; 2020-01-12 11:30)
PROC: 0DB98ZX Excision of Duodenum, Via Natural or Artificial Opening Endoscopic, Diagnostic (ICD-10-PCS; 2020-01-12 11:30)
DX: D50.9 Iron deficiency anemia, unspecified (principal); R53.83 Other fatigue; I10 Essential (primary) hypertension; K57.30 Diverticulosis of large intestine without perforation or abscess without bleeding
CPT/HCPCS: 43239; 45378; A9270; J3010; J7120

== ENCOUNTER 2020-03-29 06:26 | Outpatient (CLI) | payer MEDICARE | END 2020-03-29 06:27 | disposition critical access hospital (66) | LOC: EMS 06:26 | PROVIDERS: ATTEND Surgery | DX: M54.9 Dorsalgia, unspecified (principal); R09.89 Other specified symptoms and signs involving the circulatory and respiratory systems | CPT/HCPCS: A0425; A0429 ==

== ENCOUNTER 2020-03-29 06:39 | Observation (INO) | payer MEDICARE ==
--- NOTE | 2020-03-29 06:59 | ED Physician Documentation ---
PD HPI CHEST PAIN - Stated complaint Stated Complaint: BACK PAIN - Chief complaint Chief Complaint: Cardiac - History obtained from History obtained from: Patient - History of Present Illness Timing - onset: How many days ago (2) Timing - onset during: Rest Timing - duration: Days (2) Timing - details: Abrupt onset, Still present, Waxing and waning Quality: Aching, Sharp Location: Other (mid thoracic back) Radiation: Other (chest) Worsened by: Inspiration, Movement, Palpation (there is tender area in mid thoracic back) Recently seen: Clinic (Since August evaluated by her primary care. She also has anemia that is being worked up and has an appointment follow-up with hematology soon. Most recently had CT of the chest on 03/17/2020 for evaluating of the cough.) Review of Systems Constitutional: denies: Fever, Chills Nose: denies: Rhinorrhea / runny nose, Congestion Throat: denies: Sore throat Cardiac: reports: Palpitations. denies: Chest pain / pressure, Pedal edema Respiratory: reports: Cough (for several months, since Aug. Had chest CT 03/17/20 for eval of this, with some tests prior to that.). denies: Dyspnea, Wheezing GI: denies: Abdominal Pain, Nausea, Vomiting, Diarrhea Musculoskeletal: reports: Back pain (lower thoracic area). 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 03/29/20 Liothyronine [Cytomel] 2.5 mcg PO DAILY 03/29/20 diltiaZEM CD [Cardizem Cd] 120 mg PO DAILY #30 capsule 03/29/20 - Allergies Allergies/Adverse Reactions: Allergies Allergy/AdvReac Type Severity Reaction Status Date / Time Sulfa (Sulfonamide Allergy Rash Verified 03/29/20 06:44 Antibiotics) - Social History Does the pt smoke?: No Smoking Status: Never smoker Does the pt drink ETOH?: Yes Does the pt have substance abuse?: No - Immunizations Immunizations are current?: No Immunizations: TDAP >10years/unknown - POLST Patient has POLST: No PD ED PE NORMAL - Vitals Vital signs reviewed: Yes - General General: Alert and oriented X 3, No acute distress, Well developed/nourished - HEENT HEENT: Pharynx benign - Neck Neck: Supple, no meningeal sign, No adenopathy - Cardiac Cardiac: No murmur. No: RRR (Irregular and fast at 150s) - Respiratory Respiratory: No respiratory distress, Clear bilaterally - Abdomen Abdomen: Normal bowel sounds, Soft, Non tender, Non distended - Back Back: No CVA TTP - Derm Derm: Normal color, Warm and dry - Extremities Extremities: No deformity, No tenderness to palpate, Normal ROM s pain, No edema, No calf tenderness / cord - Neuro Neuro: Alert and oriented X 3, No motor deficit, Normal speech Results - Vitals Vitals: Vital Signs - 24 hr 03/29/20 03/29/20 03/29/20 06:47 07:00 07:30 Temperature 36.6 C Heart Rate 159 H 73 125 H Respiratory 22 17 22 Rate Blood Pressure 155/116 H 153/83 H 126/69 O2 Saturation 93 93 95 03/29/20 03/29/20 03/29/20 08:00 08:30 09:00 Temperature Heart Rate 85 84 117 H Respiratory 21 23 29 H Rate Blood Pressure 114/67 130/68 126/80 O2 Saturation 95 95 98 Oxygen O2 Source Room air - EKG (time done) 06:43 Rate: Rate (enter#) (118) Rhythm: Atrial fibrillation [place]: Normal Ischemia: Normal ST segments, Non specific changes (T wave flattening along the anterolateral leads. No ST changes). No: ST elevation c/w ischemia - Labs Labs: Laboratory Tests 03/29/20 03/29/20 03/29/20 07:07 07:07 07:07 WBC 7.4 RBC 3.08 L Hgb 9.8 L Hct 29.5 L MCV 95.8 MCH 31.8 H MCHC 33.2 RDW 13.2 Plt Count 320 MPV 9.9 Neut # (Auto) 5.8 Lymph # (Auto) 0.7 L [place] # (Auto) 0.6 Eos # (Auto) 0.2 Baso # (Auto) 0.1 Absolute Nucleated RBC 0.00 Nucleated RBC % 0.0 D-Dimer Sodium 138 Potassium 4.2 Chloride 102 Carbon Dioxide 23 Anion Gap 13.0 BUN 54 H Creatinine 1.8 H Estimated GFR (MDRD) 27 L Glucose 123 H Calcium 9.3 Magnesium Total Bilirubin 0.5 AST 14 ALT 11 Alkaline Phosphatase 55 Troponin I High Sens 10.6 B-Natriuretic Peptide Total Protein 7.2 Albumin 3.4 Globulin 3.8 Albumin/Globulin Ratio 0.9 L Lipase 29 TSH 03/29/20 03/29/20 03/29/20 07:07 07:07 07:07 WBC RBC Hgb Hct MCV MCH MCHC RDW Plt Count MPV Neut # (Auto) Lymph # (Auto) [place] # (Auto) Eos # (Auto) Baso # (Auto) Absolute Nucleated RBC Nucleated RBC % D-Dimer 374.6 H Sodium Potassium Chloride Carbon Dioxide Anion Gap BUN Creatinine Estimated GFR (MDRD) Glucose Calcium Magnesium 2.1 Total Bilirubin AST ALT Alkaline Phosphatase Troponin I High Sens B-Natriuretic Peptide 374 H Total Protein Albumin Globulin Albumin/Globulin Ratio Lipase TSH 03/29/20 07:07 WBC RBC Hgb Hct MCV MCH MCHC RDW Plt Count MPV Neut # (Auto) Lymph # (Auto) [place] # (Auto) Eos # (Auto) Baso # (Auto) Absolute Nucleated RBC Nucleated RBC % D-Dimer Sodium Potassium Chloride Carbon Dioxide Anion Gap BUN Creatinine Estimated GFR (MDRD) Glucose Calcium Magnesium Total Bilirubin AST ALT Alkaline Phosphatase Troponin I High Sens B-Natriuretic Peptide Total Protein Albumin Globulin Albumin/Globulin Ratio Lipase TSH 2.96 - Rads (name of study) chest xray Radiology: Prelim report reviewed (no acute infiltrates/abnormalities), See rad report chest CT without contrast Radiology: Prelim report reviewed, See rad report (no change from recent chest CT. interstitial lung pattern UIP. consider possible endplate compressive changes T107/27 but same as 03/17/2020. ) PD MEDICAL DECISION MAKING - ED course Complexity details: reviewed results (Negative troponin. Chest x-ray appears normal. CT of the chest did not show any pneumothorax, pneumonia, compression fractures. Elevated d-dimer by lab results but age-adjusted is within normal range. She has had ongoing cough so consider just musculoskeletal/pleurisy. Apparent new onset A. fib), re-evaluated patient (heart rate slowed with Diltiazem. Back pain improved with pain meds. CT without fracture or infiltrates. ), considered differential, d/w patient Departure - Departure Disposition: ED Place in Observation Clinical Impression: Atrial fibrillation with rapid ventricular response Acute thoracic back pain Qualifiers: Back pain laterality: midline Qualified Code(s): M54.6 - Pain in thoracic spine Dyspnea Qualifiers: Dyspnea type: shortness of breath Qualified Code(s): R06.02 - Shortness of breath Condition: Fair Record reviewed to determine appropriate education?: Yes Discharge Date/Time: 03/29/20 10:00
[2020-03-29] MEDS ORDERED: MORPHINE 2 MG/ML CARPUJECT IVP STA ×2 (07:14→08:49)
[2020-03-29] MEDS ORDERED: SODIUM CHLORIDE 0.9% 1,000 ML IV STA (07:14)
[2020-03-29] MEDS ORDERED: DILTIAZEM 50 MG/10 ML VIAL IVP ONE (07:15)
[2020-03-29 07:19] LABS: BASOPHILS # (AUTO) 0.1 10^3/uL (0.0-0.1); BASOPHILS % (AUTO) 0.7 %; EOSINOPHILS # (AUTO) 0.2 10^3/uL (0.0-0.7); EOSINOPHILS % (AUTO) 3.1 %; HGB - HEMOGLOBIN 9.8 g/dL (12.0-16.0); LYMPHOCYTES # (AUTO) 0.7 10^3/uL (1.5-3.5); LYMPHOCYTES % (AUTO) 8.8 %; MEAN CORPUSCULAR HEMOGLOBIN 31.8 pg (27.0-31.0); MEAN CORPUSCULAR HGB CONC 33.2 g/dL (32.0-36.0); MEAN CORPUSCULAR VOLUME 95.8 fL (81.0-99.0); MEAN PLATELET VOLUME 9.9 fL (7.9-10.8); MONOCYTES # (AUTO) 0.6 10^3/uL (0.0-1.0); NEUTROPHILS # (AUTO) 5.8 10^3/uL (1.5-6.6); NEUTROPHILS % (AUTO) 79.1 %; PLT - PLATELET COUNT 320 10^3/uL (130-450); RED BLOOD COUNT 3.08 10^6/uL (4.20-5.40); RED CELL DISTRIBUTION WIDTH 13.2 % (12.0-15.0); WHITE BLOOD COUNT 7.4 x10^3/uL (4.8-10.8)
[2020-03-29 07:30] LABS: ALBUMIN 3.4 g/dL (3.2-5.5); ALBUMIN/GLOBULIN RATIO 0.9 (1.0-2.2); BILIRUBIN,TOTAL 0.5 mg/dL (0.2-1.0); CALCIUM 9.3 mg/dL (8.5-10.3); CREATININE 1.8 mg/dL (0.4-1.0); TOTAL PROTEIN 7.2 g/dL (6.7-8.2)
--- NOTE | 2020-03-29 08:31 | XRAY Report ---
PROCEDURE: Chest 1 View X-Ray INDICATIONS: Chest pain TECHNIQUE: One view of the chest was acquired. COMPARISON: FINDINGS: Surgical changes and devices: None. Lungs and pleura: No pleural effusions or pneumothorax. Lungs are clear except for a slight degree of interstitial prominence. Mediastinum: Mediastinal contours appear normal. Heart size is normal. Bones and chest wall: No suspicious bony lesions. Overlying soft tissues appear unremarkable. IMPRESSION: Slight interstitial prominence, no acute cardiopulmonary disease found. Agree with preliminary interpretation. Reviewed by: Jono Stewart MD on 03/29/2020 8:29 AM PDT Approved by: Jono Stewart MD on 03/29/2020 8:29 AM PDT Station ID: [id number]
[2020-03-29] MEDS ORDERED: ENOXAPARIN 60 MG/0.6 ML SYRINGE SUBQ STA (08:33)
--- NOTE | 2020-03-29 09:06 | CT Report ---
PROCEDURE: CHEST WO INDICATIONS: mid thoracic back pain today TECHNIQUE: Noncontrast 5 mm thick sections acquired from the pulmonary apices to the posterior costophrenic angl es. 7 mm thick coronal and sagittal MIP reformats were then acquired. For radiation dose reduction, the following was used: automated exposure control, adjustment of mA and/or kV according to patient size. COMPARISON: CT chest without contrast dated 03/17/2020 FINDINGS: Image quality: Excellent. Lungs and pleura: No significant change. Again noted are bibasilar subpleural cysts, right greater th an left, with areas of reticulation and traction bronchiectasis. Also noted is tree in bud nodularity in the right middle lobe and posterior and lateral right upper lobe and posterior right lower lobe. There is some tree-in-bud pattern on the left as well. No superimposed pulmonary consolidation. Centr al and peripheral airways are patent and normal in caliber. Mediastinum: Heart size is normal. No pericardial effusion. No mediastinal adenopathy by size crit eria. Thoracic aorta and central pulmonary arteries are normal in size. Esophagus is normal in carlos sandip. No hiatal hernia. Bones and chest wall: No suspicious bony lesions. The appearance of the posterior thoracic vertebrae is not significantly changed. However, the appearance of T11 and T12 may indicate the presence of cazares bacute superior endplate fractures. Old mild compressions of T6 and T7 are unchanged. No axillary or supraclavicular adenopathy by size criteria. The thyroid is normal in size. Abdomen: Visualized upper abdominal solid organs and bowel loops appear normal in the absence of con trast. IMPRESSION: 1. The appearance of T11 and T12 may potentially indicate subacute superior endplate compression frac tures. 2. 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 Reviewed by: Devon Galvez MD on 03/29/2020 8:05 AM YAGN Approved by: Devon Galvez MD on 03/29/2020 8:05 AM YANG Station ID: [id number]
[2020-03-29] MEDS ORDERED: KETOROLAC 15 MG/ML VIAL IVP PRN (13:41)
--- NOTE | 2020-03-29 14:08 | Nuclear Medicine Report ---
PROCEDURE: Lung Vent/Perf V/Q INDICATIONS: Pleuritic Chest pain and new Afib RADIOPHARMACEUTICAL: mCi Tc-99m DTPA aerosol by inhalation and mCi Tc-99m MAA intravenously. TECHNIQUE: Ventilation images were obtained first with Tc-99m DTPA aerosol. Subsequently, perfusion images were acquired after intravenous injection of Tc-99m MAA. Anterior, posterior, YAN, [place], RPO, LPO, left and right lateral views were obtained. COMPARISON: Chest CT same day reviewed. FINDINGS: Mild scattered subsegmental matched perfusion and ventilation anomalies, in this patient w ith a CT documented chronic appearing interstitial lung disease perhaps related to prior smoking. Int ermediate probability of pulmonary embolus given IMPRESSION: Suspect chronic underlying lung disease, intermediate probability of pulmonary embolus g iven the secondary findings of multifocal subsegmental matched perfusion and ventilation anomalies. T he likelihood of pulmonary embolus cannot be established as low or very low in this circumstance. Dep ending on the clinical status follow-up by contrast-enhanced CT pulmonary angiogram may become necess cori. Reviewed by: Jono Stewart MD on 03/29/2020 2:07 PM PDT Approved by: Jono Stewart MD on 03/29/2020 2:07 PM PDT Station ID: [id number]
[2020-03-29] MEDS ORDERED: SODIUM CHLORIDE FLUSH 0.9% 10 ML SYRINGE IVP PRN (14:42)
[2020-03-29] MEDS ORDERED: ACETAMINOPHEN 325 MG TABLET PO PRN (14:42)
[2020-03-29] MEDS ORDERED: HYDROcod/ACETAM 5/325 MG TABLET PO PRN (14:42)
[2020-03-29] MEDS ORDERED: ONDANSETRON 4 MG/2 ML VIAL IVP PRN (14:42)
[2020-03-29] MEDS ORDERED: DEXTROSE 5%-0.9% NACL 1,000 ML IV SCH (15:00)
--- NOTE | 2020-03-29 16:59 | Discharge Plan ---
Discharge Plan Problem Reviewed?: Yes Disposition: Home, Self Care Condition: Fair Prescriptions: Acetaminophen/Cod 300/30 [Tylenol #3] 1 each PO Q6HR PRN #10 tablet PRN Reason: Pain >8 Aspirin [Aspirin EC] 81 mg PO DAILY #30 tablet.dr Huggins CD [Cardizem Cd] 120 mg PO DAILY #30 capsule Diet: Low Sodium Activity Restrictions: Activity as Tolerated Shower Restrictions: No Instruction Topics: Acetaminophen Codeine tablets, Diltiazem tablets, Atrial Fibrillation Dc, ED Fx Comp Vertebral Health Concerns: You were here in Observation status to monitor your heart on telemetry, to have blood tests to check for a heart attack and your thyroid, a chest CT scan to check for infection, and nuclear chest scan to check for blood clot in the lungs. We also found you had Atrial fib with a high heart rate, which you did not even feel. The Atrial fib converted to a normal rhythm after you got a dose of heart medicine in the ER. The blood tests showed no heart attack. The chest imaging showed probably no clot present in the lungs. The CT scan did show fractures of your spinal vertebrae. The Orthopedic Surgeon who is here and available today, does not do work on bones of the spine; he advised that you see a technical specialist cytology. You are being discharged with a prescription for pain control of the spinal compression fractures, a new heart medicine (Cardizem), and you should start taking 1 baby aspirin daily as a blood thinner for preventing a stroke (since having A. fib occurrence gives a higher risk of strokes). All new medications were electronically prescribed to your [facility] pharmacy in [place]. Please resume all your other usual pre-hospital medications. You need further evaluation regarding this (new) A. fib. An Echocardiogram (ultrasound of the heart) and a cardiac stress test should be done, and these can be ordered by your primary care doctor. Plan of Treatment: As above. Care Goals: Improvement in symptoms and stabilization are the goals. Assessment: Patient understands, agrees with the plan, and written instructions were provided as a reminder. Additional Instructions or Follow Up instructions: If you have new or worsening symptoms, call your primary care provider for advice or come to the ER. No Smoking: If you smoke, Please STOP! Call for help. Follow-up with: Gerry Arce MD [Primary Care Provider] -
[2020-03-29] MEDS ORDERED: SODIUM CHLORIDE FLUSH 0.9% 10 ML SYRINGE IVP SCH (17:00)
[2020-03-29 17:59] VITALS: BP 148/69
--- NOTE | 2020-03-29 18:34 | DISCHARGE SUMMARY ---
Discharge Summary Admit Date: 03/29/20 Discharge Date: 03/29/20 Discharging Provider: Dr Farzana Oviedo Primary Care Provider: Dr Gerry Arce Code Status: Attempt Resuscitation Condition at Discharge: Fair Discharge Disposition: 01 Home, Self Care - HPI History of Present Illness: Patient presented with c/o 2 days of pleuritic and positional mid-back pain and was found to be in new onset of A. fib with RVR, which converted to sinus rhythm in the ER after giving IV diltiazem x1. She also was treated for pleuritic and positional mid back pain with narcotics and Toradol. She had CT chest that showed compression fractures of 4 thoracic vertebrae. She was admitted for further evaluation of her pleuritic and positional back pain and also of the new onset A. fib, placed in Observation on telemetry. - HOSPITAL COURSE Hospital Course: 1) Pleuritic chest pain She underwent a VQ scan which showed only matched defects. It was felt to be musculoskeletal pain because it was positional and likely related to the findings of compression fractures of her thoracic vertebrae. She had relief with iv Toradol. She was discharged home with a new prescription for Tylenol#3 to take for pain as needed. 2) Paroxysmal Afib There were no further episodes of Afib on telemetry. Her TSH level was 2.96, in the normal range. She had normal hs-troponins (10.6 and 10.4). She requested to be discharged and we complied , but she still requires evaluation with an Echo (which was not available) and evaluation for ischemic coronary artery disease by stress testing, as the causes for her Afib, both of which could be done as an outpatient. New prescriptions for Cardizem CD 120 mg daily and one baby aspirin daily were ordered at discharge. 3) Compression fractures of T-spine. The chest CT reported findings of old T6 and T7 compression fractures and also subacute T11 and T12 compression fractures. She denied any recent falls or trauma to her back (except for pulling quite on railings [place] An Orthopedic consult was requested but the Orthopedist (Dr Reed) said he does not manage vertebral spine fractures, that she would need to see a different specialist for this. She was prescribed the Tylenol #3 for pain management. 4) Interstial lung disease As per Hx. The CT scan chest was read as having "no changes in the chronic interstitial process representing UIP pattern". 5) CKD Her creat of 1.8 is at it's baseline 6) Hypothyroidism The TSH was checked and was 2.96, in a normal range; the home dose of Cytomel can be resumed. 7) Anemia The Hgb of 9.8, was in her past range of Hgb of 7.6-10. - ALLERGIES Allergies/Adverse Reactions: Allergies Allergy/AdvReac Type Severity Reaction Status Date / Time Sulfa (Sulfonamide Allergy Rash Verified 03/29/20 06:44 Antibiotics) - MEDICATIONS Home Medications: Ambulatory Orders Medication Instructions Recorded Confirmed Cyclosporine [Restasis] 1 drops EACHEYE BID 01/12/20 03/24/20 Latanoprost 1 drops EACHEYE DAILY 01/12/20 03/24/20 Acetaminophen/Cod 300/30 [Tylenol 1 each PO Q6HR PRN #10 tablet 03/29/20 #3] Aspirin [Aspirin EC] 81 mg PO DAILY #30 tablet. 03/29/20 Liothyronine [Cytomel] 2.5 mcg PO DAILY 03/29/20 diltiaZEM CD [Cardizem Cd] 120 mg PO DAILY #30 capsule 03/29/20 - PHYSICAL EXAM AT DISCHARGE General Appearance: positive: No acute distress, Alert Eyes Bilateral: positive: Normal inspection, EOMI ENT: positive: No signs of dehydration Neck: positive: Nml inspection, Thyroid nml, No JVD Respiratory: positive: No respiratory distress, Breath sounds nml Cardiovascular: positive: Regular rate & rhythm, No murmur Abdomen: positive: Non-tender, Nml bowel sounds, No distention Extremities: positive: Non-tender, No pedal edema Neurologic/Psychiatric: positive: Oriented x3, Other (Non-focal grossly.) - LABS Result Diagrams: 03/29/20 07:07 03/29/20 07:07 - DIAGNOSTIC IMAGING Diagnostic Imaging Results: Final report reviewed - FOLLOW UP Follow Up: See PCP for further management soon. - TIME SPENT Time Spent in Discharge (Minutes): 30
--- NOTE | 2020-03-29 18:49 | HISTORY & PHYSICAL EXAMINATION ---
DATE OF SERVICE: 03/29/2020 Physician: Farzana Oviedo MD HISTORY OF PRESENT ILLNESS: This is an 89-year-old white female with a history of hypothyroidism and interstitial lung disease. She also has a history of anemia and has required iron infusions and is seen by the door worker at the [facility]. She states there is a pending bone marrow biopsy to be done for further evaluation of her anemia. The patient has a history of right knee replacement done 1 year ago. She is active. She is able to climb [place] the [place]ine [place] beach [place] without any dyspnea, she reports. Two days ago, she started to develop mid-back pain that was positional, which kept her up all night, two nights ago, and yesterday throughout the day, she noticed that it was also worse and started to be pleuritic and positional. Over this last night, it was even more severe, and she called her [facility] for paramedics who brought her to the emergency room. In the ER, the report was of pleuritic and positional chest pain, but no shortness of breath. She has a cough since August that has been no worse. There was no hemoptysis. She denies any fever or sputum production, chest pain, or palpitations. In the ER, she was found to be in atrial fibrillation at a rate of 150. This was felt to be new-onset atrial fibrillation. She received a dose of diltiazem IV, which slowed the atrial fibrillation rate and then she converted to sinus rhythm. Because of an elevated creatinine of 1.8, she underwent CT imaging without any contrast, which showed changes of her interstitial lung disease, but no infiltrates and also reported several T-spine compression fractures, some subacute. A D-dimer was done that was mildly elevated at 370. She denies any calf pain; was questioned when this D-dimer blood test came back. A first troponin is also within normal limits. The patient was presented to the Hospitalist team to place her in Observation status for further management of new onset of atrial fibrillation that was paroxysmal, and also management of mid-back pain that is pleuritic and positional with a CT that shows compression fractures in the thoracic area. PAST MEDICAL HISTORY 1. Chronic cough since August and diagnosis of interstitial lung disease. 2. Chronic kidney disease with creatinine of 1.8, at her baseline 3. Hypothyroidism, on replacement. 4. Anemia. ALLERGIES: SULFA. MEDICATIONS 1. Cytomel thyroid replacement at 5 mcg daily. 2. Latanoprost eyedrops, unknown frequency. 3. Cyclosporine eyedrops, unknown frequency. FAMILY HISTORY: No inherited diseases. SOCIAL HISTORY: The patient is a nonsmoker, who never smoked, drinks very rare alcohol. The patient lives alone, is a . She has children that come and check on her. She is usually very active and independent. REVIEW OF SYSTEMS: A comprehensive review of systems was performed and the pertinent positives are listed, the rest are negative. PHYSICAL EXAMINATION GENERAL: Elderly white female. She is in no distress after receiving Toradol for her back pain. VITAL SIGNS: Blood pressure 130/60, heart rate 85 in sinus rhythm, room air saturation 95%. HEENT: Unremarkable. Her oral mucosa is moist. NECK: No JVD or carotid bruits. No thyromegaly. CHEST: Clear. No rales or Velcro-like rales are heard. No rub or wheezing. HEART: Normal heart sounds. No murmur. ABDOMEN: Soft, nontender. No organomegaly. Normal bowel sounds. EXTREMITIES: No clubbing, cyanosis, or edema. No calf tenderness. NEUROLOGIC: Grossly intact. LABORATORY DATA: Normal electrolytes. BUN is 54, creatinine 1.8, magnesium 2.1. Normal liver tests. Troponin is 10.6. BNP 374. Lipase normal at 29. White blood count 7.4, hemoglobin 9.8, platelet count 320. D-dimer 374. EKG #1:Atrial fibrillation, ventricular rate of 118 and flat T-wave in lead V6. There was no old EKG available for comparison. EKG #2: (Interpreted by myself) shows sinus rhythm at a rate of 95 with frequent PVCs, left atrial enlargement and upright T-wave now in V6. IMAGING: Chest x-ray showed interstitial prominence and no acute cardiopulmonary process. Lungs are clear. CT of the chest showed subacute superior endplate compression of T11 and T12, and also old compressions of T6 and T7. Changes present of interstitial disease representing UIP pattern. There was recommendation was for a thoracic spine MRI to evaluate the T11 and T12 fractures. IMPRESSION/DIAGNOSES 1. Pleuritic chest pain. 2. Paroxysmal atrial fibrillation. 3. Compression fractures of thoracic spine, nontraumatic 4. Interstitial lung disease history. 5. Chronic kidney disease. 6. Hypothyroidism. 7. Anemia. PLAN: Place the patient in observation status on telemetry. Continue to monitor rhythm, especially for recurrence of atrial fibrillation. Begin the patient on oral Cardizem for suppressing fibrillation and also begin 1 aspirin daily for stroke prophylaxis. At this time, the patient has a CHADS score of 1 (age greater than 75). The patient stated that she was supposed to be taking 1 baby aspirin, but has mostly forgotten and is usually not taking it. Cycle troponins to rule out GA. Obtain a TSH to check her thyroid level for hyperthyroidism or excess thyroid replacement. Obtain Orthopedic consult regarding management of the compression fractures. Obtain an Echo to evaluate LV and RV contractility and PA pressure, given the new Afib. Obtain a VQ scan for further evaluation for potential pulmonary embolism given the elevated D- dimer. DEEP VENOUS THROMBOSIS PROPHYLAXIS: SCDs. CODE STATUS: FULL CODE. ATTESTATION: The patient is expected to be discharged or transferred to another facility within 96 hours: Yes. cc: Gerry Arce MD TD: 03/29/2020 17:41 MTDD
[2020-03-30] MEDS ORDERED: PANTOPRAZOLE 40 MG TABLET PO SCH (07:00)
== END 2020-03-29 19:00 | disposition home or self-care (01) ==
LOC: EDUNIT# → ED 06:39 → ICU 09:28
PROVIDERS: ADMIT Internal Medicine; ATTEND Internal Medicine
DX: I48.0 Paroxysmal atrial fibrillation (principal); M48.54XA Collapsed vertebra, not elsewhere classified, thoracic region, initial encounter for fracture; J84.9 Interstitial pulmonary disease, unspecified; N18.9 Chronic kidney disease, unspecified; E03.9 Hypothyroidism, unspecified; D64.9 Anemia, unspecified
CPT/HCPCS: 36415; 71045; 71250; 78582; 80053; 83690; 83735; 83880; 84443; 84484; 85025; 85379; 93005; 96361; 96372; 96374; 96375; 96376; 99284; 99285; A9270; G0378; J1650

== ENCOUNTER 2020-04-07 08:00 | Outpatient (CLI) | payer MEDICARE ==
[2020-04-07 18:35] LABS: ALBUMIN 3.5 g/dL (3.2-5.5); ALBUMIN/GLOBULIN RATIO 0.9 (1.0-2.2); BILIRUBIN,TOTAL 0.7 mg/dL (0.2-1.0); CREATININE 2.1 mg/dL (0.4-1.0); TOTAL PROTEIN 7.2 g/dL (6.7-8.2)
[2020-04-07 18:37] LABS: BASOPHILS % (AUTO) 0.6 %; EOSINOPHILS # (AUTO) 0.1 10^3/uL (0.0-0.7); EOSINOPHILS % (AUTO) 1.7 %; HGB - HEMOGLOBIN 8.3 g/dL (12.0-16.0); LYMPHOCYTES # (AUTO) 0.7 10^3/uL (1.5-3.5); LYMPHOCYTES % (AUTO) 9.5 %; MEAN CORPUSCULAR HEMOGLOBIN 31.2 pg (27.0-31.0); MEAN CORPUSCULAR HGB CONC 31.8 g/dL (32.0-36.0); MEAN CORPUSCULAR VOLUME 98.1 fL (81.0-99.0); MEAN PLATELET VOLUME 10.3 fL (7.9-10.8); MONOCYTES # (AUTO) 0.5 10^3/uL (0.0-1.0); MONOCYTES % (AUTO) 6.6 %; NEUTROPHILS # (AUTO) 5.7 10^3/uL (1.5-6.6); NEUTROPHILS % (AUTO) 81.2 %; PLT - PLATELET COUNT 384 10^3/uL (130-450); RED BLOOD COUNT 2.66 10^6/uL (4.20-5.40); RED CELL DISTRIBUTION WIDTH 13.3 % (12.0-15.0)
== END 2020-04-07 23:59 | disposition home or self-care (01) ==
LOC: LAB.WCP 08:00
PROVIDERS: ATTEND Family Medicine
DX: E03.9 Hypothyroidism, unspecified (principal); D64.9 Anemia, unspecified
CPT/HCPCS: 36415; 80053; 84443; 85025

== ENCOUNTER 2020-04-28 10:15 | Outpatient (CLI) | payer MEDICARE | END 2020-04-28 10:16 | disposition home or self-care (01) | LOC: DI 10:15 | PROVIDERS: ATTEND Family Medicine | DX: I48.0 Paroxysmal atrial fibrillation (principal) | CPT/HCPCS: 93306 ==

== ENCOUNTER 2020-05-19 13:24 | Outpatient (CLI) | payer MEDICARE ==
[2020-05-19 14:03] LABS: PROTEIN/CREATININE RATIO,URINE 1.1 (<=0.2)
== END 2020-05-19 13:25 | disposition home or self-care (01) ==
LOC: LAB 13:24
PROVIDERS: ATTEND Internal Medicine Nephrology
DX: R80.9 Proteinuria, unspecified (principal)
CPT/HCPCS: 82570; 84156

== ENCOUNTER 2020-05-24 14:21 | Outpatient (CLI) | payer MEDICARE ==
[2020-05-24 15:52] LABS: BASOPHILS % (AUTO) 0.6 %; EOSINOPHILS # (AUTO) 0.1 10^3/uL (0.0-0.7); EOSINOPHILS % (AUTO) 2.2 %; LYMPHOCYTES # (AUTO) 0.7 10^3/uL (1.5-3.5); LYMPHOCYTES % (AUTO) 10.2 %; MEAN CORPUSCULAR HEMOGLOBIN 32.1 pg (27.0-31.0); MEAN CORPUSCULAR HGB CONC 32.7 g/dL (32.0-36.0); MEAN CORPUSCULAR VOLUME 98.1 fL (81.0-99.0); MEAN PLATELET VOLUME 9.3 fL (7.9-10.8); MONOCYTES # (AUTO) 0.4 10^3/uL (0.0-1.0); MONOCYTES % (AUTO) 6.2 %; NEUTROPHILS # (AUTO) 5.2 10^3/uL (1.5-6.6); NEUTROPHILS % (AUTO) 80.2 %; PLT - PLATELET COUNT 328 10^3/uL (130-450); RED BLOOD COUNT 2.15 10^6/uL (4.20-5.40); RED CELL DISTRIBUTION WIDTH 13.2 % (12.0-15.0); WHITE BLOOD COUNT 6.5 x10^3/uL (4.8-10.8)
[2020-05-24 15:59] LABS: ALBUMIN 3.5 g/dL (3.2-5.5); ALBUMIN/GLOBULIN RATIO 0.9 (1.0-2.2); BILIRUBIN,TOTAL 0.5 mg/dL (0.2-1.0); CALCIUM 8.9 mg/dL (8.5-10.3); CREATININE 3.1 mg/dL (0.4-1.0); TOTAL PROTEIN 7.3 g/dL (6.7-8.2)
--- NOTE | 2020-05-24 16:46 | Ultrasound Report ---
PROCEDURE: Arterial Visceral Complete INDICATIONS: ACUTE KIDNEY INJURY TECHNIQUE: Real time scanning was performed of the aorta, celiac trunk, superior and inferior mesent tarik arteries, with color and pulsed Doppler interrogation of the mesenteric vessels. FINDINGS: Please refer to the report from retroperitoneal ultrasound same day, combined. IMPRESSION: Please refer to the dedicated combined report for the retroperitoneal ultrasound perform ed same day. Reviewed by: Jono Stewart MD on 05/24/2020 4:45 PM PST Approved by: Jono Stewart MD on 05/24/2020 4:45 PM PST Station ID: [id number]
--- NOTE | 2020-05-24 16:52 | Ultrasound Report ---
PROCEDURE: Retroperitoneal INDICATIONS: ROLAND TECHNIQUE: Real-time scanning was performed of the retroperitoneal organs, with image documentation. COMPARISON: None. FINDINGS: Kidneys: Kidneys are normal in size. Right kidney measures 9.8 cm long; left kidney measures 7.2 cm long. Right renal cortical thickness is 0.8-1.0 cm; left renal cortical thickness is 0.7-1.0 cm. N o solid masses, hydronephrosis, or nephrolithiasis. Renal cortical echotexture is increased bilateral ly, consistent with underlying medical renal disease. Bowel gas obscures clear visualization of significant portions of the renal vasculature. The renal ve in appears patent bilaterally. Aortic peak systolic flow velocity is 184 cm/s. Renal arterial peak sy stolic velocity on the right where well visualized was 90 cm/s and on the left 102 cm/s. Renal artery /aorta ratio is normal bilaterally. Pancreas: Visualized portions of the pancreas are sonographically normal. Aorta: Visualized aorta is normal in caliber at 3 cm or less. Iliac arteries: Proximal common iliac arteries are normal in caliber at 2.5 cm or less. IVC: Intrahepatic inferior vena cava is patent. Miscellaneous: No free abdominal fluid. IMPRESSION: No hydronephrosis or nephrolithiasis seen. No sign of renal artery stenosis bilaterally. Quality of v isualization of the renal vasculature is somewhat limited due to overlying bowel gas. Renal vein lai ncy is documented bilaterally. Note is made of asymmetric size of the kidneys smaller on the left. However, overall renal parenchyma volume appears within normal anatomic range. Renal parenchymal echotexture however is increased, con sistent with nonspecific underlying medical renal disease. Reviewed by: Jono Stewart MD on 05/24/2020 4:50 PM PST Approved by: Jono Stewart MD on 05/24/2020 4:50 PM PST Station ID: [id number]
[2020-05-24 16:58] LABS: HGB - HEMOGLOBIN 6.9 g/dL (12.0-16.0)
[2020-05-26 11:52] LABS: COMPLEMENT COMPONENT C3C 131 mg/dL; COMPLEMENT COMPONENT C4C 39 mg/dL
[2020-05-26 12:58] LABS: ALBUMIN 3.5 g/dL (3.8-4.8); ALPHA 1 GLOBULIN 0.4 g/dL (0.2-0.3); BETA 1 GLOBULIN 0.4 g/dL (0.4-0.6); BETA 2 GLOBULIN 0.4 g/dL (0.2-0.5); GAMMA GLOBULIN 1.1 g/dL (0.8-1.7)
[2020-05-26 19:46] LABS: GLOM BASEMENT MEMBRANE AB IGG <1.0 AI (<1.0)
== END 2020-05-24 14:22 | disposition home or self-care (01) ==
LOC: DI 14:21
PROVIDERS: ATTEND Internal Medicine Nephrology
DX: N17.9 Acute kidney failure, unspecified (principal); N00.9 Acute nephritic syndrome with unspecified morphologic changes; M31.30 Wegener's granulomatosis without renal involvement; R80.9 Proteinuria, unspecified; D63.1 Anemia in chronic kidney disease; D47.2 Monoclonal gammopathy; D70.9 Neutropenia, unspecified
CPT/HCPCS: 36415; 80053; 81599; 83520; 83883; 84155; 84165; 85025; 86021; 86160; 86334; 93975

== ENCOUNTER 2020-06-04 11:10 | Outpatient (CLI) | payer MEDICARE ==
[2020-06-04 11:42] LABS: HGB - HEMOGLOBIN 10.2 g/dL (12.0-16.0); MEAN CORPUSCULAR HEMOGLOBIN 31.1 pg (27.0-31.0); MEAN CORPUSCULAR HGB CONC 32.2 g/dL (32.0-36.0); MEAN CORPUSCULAR VOLUME 96.6 fL (81.0-99.0); MEAN PLATELET VOLUME 10.1 fL (7.9-10.8); RED BLOOD COUNT 3.28 10^6/uL (4.20-5.40); RED CELL DISTRIBUTION WIDTH 13.2 % (12.0-15.0); WHITE BLOOD COUNT 6.4 x10^3/uL (4.8-10.8)
[2020-06-04 11:52] LABS: CREATININE 3.7 mg/dL (0.4-1.0)
[2020-06-05 13:21] LABS: HEPATITIS B SURFACE ANTIGEN NON-REACTIVE (NON-REACTIVE)
[2020-06-10 16:37] LABS: HEPATITIS C VIRAL RNA GENOTYPE NOT DETECTED
== END 2020-06-04 11:11 | disposition home or self-care (01) ==
LOC: LAB 11:10
PROVIDERS: ATTEND Internal Medicine Nephrology
DX: I77.6 Arteritis, unspecified (principal); B19.10 Unspecified viral hepatitis B without hepatic coma; B17.10 Acute hepatitis C without hepatic coma; N05.9 Unspecified nephritic syndrome with unspecified morphologic changes; D70.9 Neutropenia, unspecified; D63.1 Anemia in chronic kidney disease
CPT/HCPCS: 36415; 80048; 81599; 85027; 86021; 86317; 86704; 87340; 87902

== ENCOUNTER 2020-06-11 11:21 | Outpatient (CLI) | payer MEDICARE ==
[2020-06-11 11:38] LABS: HGB - HEMOGLOBIN 9.1 g/dL (12.0-16.0); MEAN CORPUSCULAR HEMOGLOBIN 31.6 pg (27.0-31.0); MEAN CORPUSCULAR HGB CONC 32.9 g/dL (32.0-36.0); MEAN CORPUSCULAR VOLUME 96.2 fL (81.0-99.0); MEAN PLATELET VOLUME 9.2 fL (7.9-10.8); RED BLOOD COUNT 2.88 10^6/uL (4.20-5.40); RED CELL DISTRIBUTION WIDTH 12.8 % (12.0-15.0); WHITE BLOOD COUNT 8.3 x10^3/uL (4.8-10.8)
[2020-06-11 12:00] LABS: CALCIUM 9.4 mg/dL (8.5-10.3); CREATININE 4.3 mg/dL (0.4-1.0)
== END 2020-06-11 11:22 | disposition home or self-care (01) ==
LOC: LAB 11:21
PROVIDERS: ATTEND Internal Medicine Nephrology
DX: N05.9 Unspecified nephritic syndrome with unspecified morphologic changes (principal); D63.1 Anemia in chronic kidney disease; D70.9 Neutropenia, unspecified
CPT/HCPCS: 36415; 80048; 85027

== ENCOUNTER 2020-06-16 14:15 | Outpatient (CLI) | payer MEDICARE ==
[2020-06-16 14:37] LABS: MEAN CORPUSCULAR HEMOGLOBIN 31.7 pg (27.0-31.0); MEAN CORPUSCULAR HGB CONC 33.6 g/dL (32.0-36.0); MEAN CORPUSCULAR VOLUME 94.4 fL (81.0-99.0); MEAN PLATELET VOLUME 9.5 fL (7.9-10.8); RED BLOOD COUNT 2.84 10^6/uL (4.20-5.40); RED CELL DISTRIBUTION WIDTH 12.9 % (12.0-15.0); WHITE BLOOD COUNT 12.2 x10^3/uL (4.8-10.8)
[2020-06-16 14:49] LABS: CALCIUM 8.3 mg/dL (8.5-10.3); CREATININE 2.8 mg/dL (0.4-1.0)
== END 2020-06-16 14:16 | disposition home or self-care (01) ==
LOC: LAB 14:15
PROVIDERS: ATTEND Internal Medicine Nephrology
DX: N05.9 Unspecified nephritic syndrome with unspecified morphologic changes (principal); D70.9 Neutropenia, unspecified; D63.1 Anemia in chronic kidney disease
CPT/HCPCS: 36415; 80048; 85027

== ENCOUNTER 2020-06-23 11:11 | Outpatient (CLI) | payer MEDICARE ==
[2020-06-23 11:36] LABS: HGB - HEMOGLOBIN 8.2 g/dL (12.0-16.0); MEAN CORPUSCULAR HEMOGLOBIN 31.7 pg (27.0-31.0); MEAN CORPUSCULAR HGB CONC 32.4 g/dL (32.0-36.0); MEAN CORPUSCULAR VOLUME 97.7 fL (81.0-99.0); MEAN PLATELET VOLUME 9.7 fL (7.9-10.8); RED BLOOD COUNT 2.59 10^6/uL (4.20-5.40); RED CELL DISTRIBUTION WIDTH 13.1 % (12.0-15.0); WHITE BLOOD COUNT 11.1 x10^3/uL (4.8-10.8)
[2020-06-23 11:49] LABS: CALCIUM 8.9 mg/dL (8.5-10.3); CREATININE 2.7 mg/dL (0.4-1.0)
== END 2020-06-23 11:12 | disposition home or self-care (01) ==
LOC: LAB 11:11
PROVIDERS: ATTEND Internal Medicine Nephrology
DX: N05.9 Unspecified nephritic syndrome with unspecified morphologic changes (principal); D70.9 Neutropenia, unspecified; D63.1 Anemia in chronic kidney disease
CPT/HCPCS: 36415; 80048; 85027

== ENCOUNTER 2020-06-30 11:04 | Outpatient (CLI) | payer MEDICARE ==
[2020-06-30 11:20] LABS: MEAN CORPUSCULAR HEMOGLOBIN 31.4 pg (27.0-31.0); MEAN CORPUSCULAR HGB CONC 31.9 g/dL (32.0-36.0); MEAN CORPUSCULAR VOLUME 98.5 fL (81.0-99.0); MEAN PLATELET VOLUME 9.6 fL (7.9-10.8); RED BLOOD COUNT 1.94 10^6/uL (4.20-5.40); RED CELL DISTRIBUTION WIDTH 15.2 % (12.0-15.0)
[2020-06-30 11:27] LABS: HGB - HEMOGLOBIN 6.1 g/dL (12.0-16.0)
[2020-06-30 11:29] LABS: CALCIUM 8.8 mg/dL (8.5-10.3); CREATININE 2.5 mg/dL (0.4-1.0)
== END 2020-06-30 11:05 | disposition home or self-care (01) ==
LOC: LAB 11:04
PROVIDERS: ATTEND Internal Medicine Nephrology
DX: N05.9 Unspecified nephritic syndrome with unspecified morphologic changes (principal); D70.9 Neutropenia, unspecified; D63.1 Anemia in chronic kidney disease
CPT/HCPCS: 36415; 80048; 85027

== ENCOUNTER 2020-07-02 07:17 | Outpatient (CLI) | payer MEDICARE | END 2020-07-02 07:18 | disposition critical access hospital (66) | LOC: EMS 07:17 | PROVIDERS: ATTEND Surgery | DX: R06.02 Shortness of breath (principal) | CPT/HCPCS: A0425; A0429 ==

== ENCOUNTER 2020-07-02 07:30 | Inpatient (IN) | payer MEDICARE ==
[2020-07-02] MEDS ORDERED: IPRATROPIUM/ALBUTEROL 3 ML NEB INH STA (07:46)
--- NOTE | 2020-07-02 07:47 | ED Physician Documentation ---
PD HPI DYSPNEA - Stated complaint Stated Complaint: SOA - Chief complaint Chief Complaint: Resp - History obtained from History obtained from: Patient, EMS - History of Present Illness Timing - onset: How many days ago (several days of progressive dyspnea with activity, some orthopnea, and noted leg swelling (mostly left) and general weakness. This worsened overnight with worse dyspnea and some pleuritic left scapular area pain.) Timing - onset during: Sleep, Light activity Timing - duration: Days Timing - details: Gradual onset, Still present Inciting event(s): No: URI, Immobilization/travel Improved by: Rest, Sitting up Worsened by: Exertion, Laying flat Associated symptoms: No: Fever, Cough Similar symptoms before: Diagnosis (weakness and dyspnea with anemia in the past. Had some high output failure with atrial fib rapid in Mar. No ongoing CHF nor any lung disease.) Recently seen: Clinic (seen by DEO Alcocer recently and Dx with vasculitis, started on Prednisone and another med couple weeks ago. history of anemia and saw Freddie yesterday, with lowHgb and scheduled to get trasnfusion today in [facility] (has had transfusion couple months ago).) Review of Systems Constitutional: denies: Fever, Chills, Myalgias Nose: denies: Rhinorrhea / runny nose, Congestion Throat: denies: Sore throat Cardiac: reports: Chest pain / pressure (just last night/overnight. mild scapular pain right now.). denies: Palpitations Respiratory: reports: Dyspnea, Wheezing. 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: Other - Present Medications Home Medications: Ambulatory Orders Medication Instructions Recorded Confirmed Aspirin EC [Ecotrin] 81 mg PO DAILY 07/02/20 07/02/20 Carboxymethylcellulose Sodium 1 each OP PRN PRN 07/02/20 07/02/20 [Refresh Plus] Cyclophosphamide 25 mg PO DAILY 07/02/20 07/02/20 Cyclosporine [Restasis] 1 each OP BID 07/02/20 07/02/20 Dapsone 25 mg PO DAILY 07/02/20 07/02/20 Latanoprost [Xalatan] 1 drp EACHEYE DAILY 07/02/20 07/02/20 Liothyronine [Cytomel] 5 mcg PO QDAC 07/02/20 07/02/20 Mv-Mn/Folic AC/Calcium/Vit K1 1 tab PO DAILY 07/02/20 07/02/20 [Women 50 Plus Multivit Adv Tab] diltiaZEM CD [Cardizem Cd] 120 mg PO DAILY 07/02/20 07/02/20 predniSONE [Deltasone] 20 mg PO DAILY 07/02/20 07/02/20 - Allergies Allergies/Adverse Reactions: Allergies Allergy/AdvReac Type Severity Reaction Status Date / Time Sulfa (Sulfonamide Allergy Rash Verified 07/02/20 11:23 Antibiotics) - Social History Does the pt smoke?: No Smoking Status: Never smoker Does the pt drink ETOH?: Yes Does the pt have substance abuse?: No - Immunizations Immunizations are current?: No Immunizations: TDAP >10years/unknown - POLST Patient has POLST: No PD ED PE NORMAL - Vitals Vital signs reviewed: Yes - General General: Alert and oriented X 3, Well developed/nourished, Other (able to talk sentences, but does have increased work of breathing with some audible wheezing. ) - HEENT HEENT: Pharynx benign - Neck Neck: Supple, no meningeal sign, No adenopathy - Cardiac Cardiac: RRR, No murmur - Respiratory Respiratory: No: Clear bilaterally (exp wheezes centrally, and fine crackles heard at lower part of lungs.) - Abdomen Abdomen: Soft, Non tender - Female Female : Deferred - Rectal Rectal: Other (soft brown stool in vault. No melena. guaiac test sent to lab. ) - Back Back: No CVA TTP - Derm Derm: Normal color, Warm and dry - Extremities Extremities: No tenderness to palpate, Normal ROM s pain, No calf tenderness / cord, Other (has mild edema in ankles, mostly on left side. No calf tenderness. ) - Neuro Neuro: Alert and oriented X 3, No motor deficit, Normal speech Results - Vitals Vitals: Vital Signs - 24 hr 12/18/20 12/18/20 12/18/20 07:35 08:00 08:24 Temperature 36.4 C L Heart Rate 90 76 86 Respiratory 28 H 20 19 Rate Blood Pressure 176/57 H 161/55 H O2 Saturation 90 L 98 07/02/20 07/02/20 07/02/20 09:08 09:36 09:41 Temperature 36.3 C L Heart Rate 90 90 88 Respiratory 22 18 24 Rate Blood Pressure 155/66 H 137/115 H 145/57 H O2 Saturation 95 96 07/02/20 07/02/20 07/02/20 09:56 10:11 10:30 Temperature 36.5 C 36.1 C L 36.2 C L Heart Rate 88 86 82 Respiratory 22 20 20 Rate Blood Pressure 139/60 H 151/61 H 156/62 H O2 Saturation 95 97 98 07/02/20 07/02/20 07/02/20 10:52 11:08 11:21 Temperature 36.1 C L 36.2 C L Heart Rate 70 95 95 Respiratory 18 20 20 Rate Blood Pressure 157/63 H 161/80 H 163/68 H O2 Saturation 96 96 96 Oxygen O2 Source Nasal cannula - EKG (time done) 08:00 Rate: Rate (enter#) (83) Rhythm: NSR [place]: Normal Intervals: Normal [place] QRS: Normal Ischemia: Non specific changes (lateral minimal ST depressions, similar to Mar 2020) Compare to prior EKG: Changed from prior EKG (similar morphology but now NSR (was afib then in Mar)) - Labs Labs: Microbiology 07/02/20 08:51 Occult Blood - Final Stool - Loose Consistency Laboratory Tests 07/02/20 07/02/20 07/02/20 08:18 08:18 08:18 WBC 5.5 RBC 1.63 L Hgb 5.2 L* Hct 16.6 L* MCV 101.8 H MCH 31.9 H MCHC 31.3 L RDW 17.2 H Plt Count 187 MPV 10.3 Neut # (Auto) 4.5 Lymph # (Auto) 0.3 L [place]ayson # (Auto) 0.4 Eos # (Auto) 0.1 Baso # (Auto) 0.0 Absolute Nucleated RBC 0.00 Nucleated RBC % 0.0 D-Dimer 483.8 H Sodium Potassium Chloride Carbon Dioxide Anion Gap BUN Creatinine Estimated GFR (MDRD) Glucose Calcium Magnesium Total Bilirubin AST ALT Alkaline Phosphatase Troponin I High Sens 114.7 H* B-Natriuretic Peptide Total Protein Albumin Globulin Albumin/Globulin Ratio Blood Type Antibody Screen Crossmatch IS Only 07/02/20 07/02/20 07/02/20 08:18 08:25 08:30 WBC RBC Hgb Hct MCV MCH MCHC RDW Plt Count MPV Neut # (Auto) Lymph # (Auto) Grayson # (Auto) Eos # (Auto) Baso # (Auto) Absolute Nucleated RBC Nucleated RBC % D-Dimer Sodium 135 Potassium 4.9 Chloride 103 Carbon Dioxide 22 Anion Gap 10.0 BUN 71 H Creatinine 2.6 H Estimated GFR (MDRD) 17 L Glucose 104 H Calcium 8.5 Magnesium 2.0 Total Bilirubin 1.0 AST 18 ALT 27 Alkaline Phosphatase 28 L Troponin I High Sens B-Natriuretic Peptide 608 H Total Protein 5.6 L Albumin 3.1 L Globulin 2.5 Albumin/Globulin Ratio 1.2 Blood Type A POSITIVE Antibody Screen NEGATIVE Crossmatch IS Only See Detail 07/02/20 11:08 WBC RBC Hgb Hct MCV MCH MCHC RDW Plt Count MPV Neut # (Auto) Lymph # (Auto) [place] # (Auto) Eos # (Auto) Baso # (Auto) Absolute Nucleated RBC Nucleated RBC % D-Dimer Sodium Potassium Chloride Carbon Dioxide Anion Gap BUN Creatinine Estimated GFR (MDRD) Glucose Calcium Magnesium Total Bilirubin AST ALT Alkaline Phosphatase Troponin I High Sens 280.8 H* B-Natriuretic Peptide Total Protein Albumin Globulin Albumin/Globulin Ratio Blood Type Antibody Screen Crossmatch IS Only - Rads (name of study) chest Radiology: Prelim report reviewed (Interstitial prominence consistent with CHF. No effusions nor pneumothorax.), See rad report PD MEDICAL DECISION MAKING - ED course Complexity details: reviewed results (CXR appears CHF, with elevated troponin, and lower Hgb, lower sats. I presume some high output heart failure. Had recent ECHO with good EF. I am concerned about needing close attention for transfusion, and to further evaluate AMI (presume type 2) or potential PE (cannot get CTA with [facility]I, so ?VQ).), re-evaluated patient (Feeling better with neb and oxygen. Was 88% on RA still, so now at 2 lpm. ), considered differential (having dyspnea and some orthopnea. Has anemia. recent admission for afib with some failure had ECHO showing 65% EF. Consider high output heart failure. No URI symptoms. ), d/w patient, d/w family (son) Departure - Departure Disposition: ED Place in Observation Clinical Impression: High output congestive heart failure, Elevated troponin, Chest pain, rule out acute myocardial infarction Dyspnea Qualifiers: Dyspnea type: shortness of breath Qualified Code(s): R06.02 - Shortness of breath Anemia Qualifiers: Anemia type: iron deficiency Iron deficiency anemia type: unspecified iron deficiency Qualified Code(s): D50.9 - Iron deficiency anemia, unspecified Condition: Stable Record reviewed to determine appropriate education?: Yes Discharge Date/Time: 07/02/20 13:18
[2020-07-02] MEDS ORDERED: FUROSEMIDE 40 MG/4 ML VIAL IVP STA (08:12)
--- NOTE | 2020-07-02 08:19 | XRAY Report ---
PROCEDURE: Chest 1 View X-Ray INDICATIONS: Chest Pain TECHNIQUE: One view of the chest was acquired. COMPARISON: 03/29/2020 FINDINGS: Surgical changes and devices: None. Lungs and pleura: No pleural effusions or pneumothorax. Patchy opacities and interstitial prominence noted in the lungs bilaterally right greater than left which could represent atypical pneumonia or p ulmonary edema. Mediastinum: Mediastinal contours appear normal. Heart size is normal. Bones and chest wall: Multiple chronic left rib fractures are stable. No suspicious bony lesions. O verlying soft tissues appear unremarkable. IMPRESSION: Patchy bilateral lung opacities and lung interstitial prominence which could represent atypical pneum onia or pulmonary edema. Reviewed by: Crista Sharpe MD, PhD on 07/02/2020 8:18 AM PST Approved by: Crista Sharpe MD, PhD on 07/02/2020 8:18 AM PST Station ID: [id number]
[2020-07-02 08:29] LABS: BASOPHILS % (AUTO) 0.4 %; EOSINOPHILS # (AUTO) 0.1 10^3/uL (0.0-0.7); EOSINOPHILS % (AUTO) 1.6 %; LYMPHOCYTES # (AUTO) 0.3 10^3/uL (1.5-3.5); LYMPHOCYTES % (AUTO) 5.8 %; MEAN CORPUSCULAR HEMOGLOBIN 31.9 pg (27.0-31.0); MEAN CORPUSCULAR HGB CONC 31.3 g/dL (32.0-36.0); MEAN CORPUSCULAR VOLUME 101.8 fL (81.0-99.0); MEAN PLATELET VOLUME 10.3 fL (7.9-10.8); MONOCYTES # (AUTO) 0.4 10^3/uL (0.0-1.0); MONOCYTES % (AUTO) 6.6 %; NEUTROPHILS # (AUTO) 4.5 10^3/uL (1.5-6.6); NEUTROPHILS % (AUTO) 82.5 %; PLT - PLATELET COUNT 187 10^3/uL (130-450); RED BLOOD COUNT 1.63 10^6/uL (4.20-5.40); RED CELL DISTRIBUTION WIDTH 17.2 % (12.0-15.0); WHITE BLOOD COUNT 5.5 x10^3/uL (4.8-10.8)
[2020-07-02 08:41] LABS: HGB - HEMOGLOBIN 5.2 g/dL (12.0-16.0)
[2020-07-02 08:43] LABS: ALBUMIN 3.1 g/dL (3.2-5.5); ALBUMIN/GLOBULIN RATIO 1.2 (1.0-2.2); CALCIUM 8.5 mg/dL (8.5-10.3); CREATININE 2.6 mg/dL (0.4-1.0); TOTAL PROTEIN 5.6 g/dL (6.7-8.2)
[2020-07-02] MEDS ORDERED: ONDANSETRON 4 MG/2 ML VIAL IVP PRN (11:47)
[2020-07-02] MEDS ORDERED: ACETAMINOPHEN 325 MG TABLET PO PRN (11:47)
[2020-07-02] MEDS ORDERED: SODIUM CHLORIDE FLUSH 0.9% 10 ML SYRINGE IVP PRN (11:47)
[2020-07-02] MEDS ORDERED: ASPIRIN CHEW 81 MG TABLET PO STA (12:00)
[2020-07-02] MEDS ORDERED: ATORVASTATIN 40 MG TABLET PO STA (12:02)
[2020-07-02] MEDS ORDERED: FUROSEMIDE 40 MG/4 ML VIAL IVP ONE (12:30)
[2020-07-02] MEDS: METOPROLOL TARTRATE 25 MG TABLET PO SCH ×2 (13:04→21:53)
[2020-07-02] MEDS ORDERED: methylPREDNISolone SUCCINATE 40 MG/ML VIAL IVP SCH (14:00)
--- NOTE | 2020-07-02 14:00 | PHARMACY PROGRESS NOTE ---
- Best Possible Medication History Admit Date and Time: 07/02/20 1143 Processed by: Pharmacy Medication History completed: Yes Patient Interview: Completed Secondary Source(s): Physician records, Pharmacy records, Insurance records As the person ultimately responsible for medication therapy, providers are able to order a medication from an existing home medication list in [facility] via the "Reconcile Routine" prior to Confirmation of that medication by client support coordinator. Such practice is discouraged except when the physician, in their clinical judgment, deems that a medical need exists for a medication without regard to previous use.
[2020-07-02] MEDS ORDERED: NITROGLYCERIN SL 0.4 MG TABLET SL PRN (15:08)
[2020-07-02 15:46] LABS: PT - PROTHROMBIN TIME 10.7 secs (9.9-12.6)
[2020-07-02] MEDS: IPRATROPIUM/ALBUTEROL 3 ML NEB INH SCH ×2 (16:21→19:30)
[2020-07-02] MEDS: NITROGLYCERIN 2% PASTE TOP SCH (16:42)
[2020-07-02] MEDS: SODIUM CHLORIDE FLUSH 0.9% 10 ML SYRINGE IVP SCH (16:45)
[2020-07-02] MEDS ORDERED: CARBOXYMETHYLCELLULOSE OPHTH DROPS EACHEYE PRN (16:50)
[2020-07-02 17:07] LABS: C. PNEUMONIAE- RESP PCR PANEL NOT DETECTED
--- NOTE | 2020-07-02 17:41 | HISTORY & PHYSICAL EXAMINATION ---
DATE OF SERVICE: 07/02/2020 Physician: Farzana Oviedo MD HISTORY OF PRESENT ILLNESS: This is an 89-year-old white female who lives alone, [place] She has a history of a compression fracture of her thoracic spine that occurred about half a year ago, interstitial fibrotic lung disease, chronic kidney disease, followed by Dr. 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 Frazier in [place] [facility] [place]. She was admitted here in November of this year with paroxysmal AFib that was new onset, she ruled out for an ND with normal troponins despite describing chest pain. The chest pain was between her scapula and her back and was described as pleuritic, however. She did have a V/Q scan that showed matched defects only and it was felt to be musculoskeletal because of the findings of compression fracture of the thoracic vertebrae. When she was here in November, it was the weekend and we do not have echo service available and she was discharged with recommendations to complete evaluation for the new onset of atrial fibrillation to include an echo and outpatient stress test to evaluate for coronary artery disease. She has had a lot of workup being done since that time for the kidney failure and anemia. She had bone marrow biopsy. 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 The patient was just seen in [place] [facility] yesterday in hematology and the hemoglobin was 6.1 and there were arrangements made for her to come back to [facility] today to receive a transfusion. Overnight, however, she got rapidly progressively short of breath with orthopnea and then developed mid scapular pain that was severe and she presented to the emergency room early this morning because of that complaint. In the ER, she was found to have saturations of 85% on room air, she had rales and had wheezing heard on exam and slight leg edema. The hemoglobin had dropped to 5.2. She received IV Lasix, was cross matched and started to get 1 unit of blood transfused, 2 units were ordered. A nebulizer was given. Her BNP returned in the 600s whereas in November, it was in the 300s. A troponin value has returned at 114. The plan was to have her admitted for blood transfusions with diuresis in between; however, the next troponin has returned back at over 280 and she is ruling in for an ND and is to be admitted now as an inpatient. PAST MEDICAL HISTORY: Yuridia's with interstitial pulmonary fibrosis and chronic kidney disease, anemia, which is multifactorial, history of AFib, which was paroxysmal, hypothyroidism, head tremor. ALLERGIES: SULFA. MEDICATIONS 1. Rituxan once a week and she received 1 dose several days ago. 2. Baby aspirin daily. 3. Cyclosporine eyedrops b.i.d. 4. Diltiazem CD 120 mg daily. 5. Xalatan eyedrops daily. 6. Cytomel 5 mcg daily before breakfast. 7. Multivitamin with calcium and vitamin K. 8. Prednisone 20 mg daily. 9. Cyclophosphamide 50 mg daily. 10. Dapsone 25 mg daily. 11. Refresh eyedrops p.r.n. REVIEW OF SYSTEMS: The patient describes a cough since August. She describes orthopnea and PND for the last 2 days and leg edema for the last 2 days. Her chest pain only occurred in November and that has occurred last night. She states she has not yet had time to have the stress test done for cardiac evaluation because they were so focused on the bone marrow biopsy and doctor's appointments with Hematology and Nephrology. SOCIAL HISTORY: She lives alone, she is a nonsmoker, no alcohol abuse history, there is no illicit drug use history. PHYSICAL EXAM GENERAL: Elderly white female. She is in no respiratory distress. She does complain of mid scapular pain recurring again currently. It is not worse with repositioning in bed. She has a fine head tremor. VITAL SIGNS: Blood pressure 150/68, heart rate 95-105 in sinus rhythm, afebrile, room air saturation was 85% and now on 2 liters oxygen, she is 96% saturated. HEENT: Reveals the head tremor, her oral mucosa is moist. Her dentition is good. NECK: No JVD. No carotid bruits. CHEST: Rales at both bases, no wheezing or rhonchi. HEART: No murmur and no gallop. ABDOMEN: Soft, nontender. No organomegaly. Normal bowel sounds. EXTREMITIES: Trace to 1+ ankle edema. No clubbing or cyanosis. NEUROLOGIC: Head tremor, otherwise nonfocal and she is hard of hearing. LABORATORY DATA: Sodium 135, potassium 4.9, BUN 71, creatinine 2.6. Her last creatinine was about 2.5, albumin 3.1. Normal liver tests. White blood count 5.5, hemoglobin 5.2, MCV 101, RDW 17, platelet count 187. INR 1.0. High sensitivity troponin 114, the next one 280. BNP 608. EKG: Normal sinus rhythm, flat T-waves laterally, which is new since her November EKG and there is 0.[address] depressions in V4 through V6, which are also new. There is no longer AFib like there was in November. CHEST X-RAY: Patchy bilateral lung opacities. IMPRESSION/DIAGNOSES 1. Acute non-ST elevated myocardial infarction. There could be consideration that this is a type 2 myocardial infarction because of the profound anemia causing demand ischemia; however, she has true anginal symptoms, which for her is mid scapular chest pain posteriorly suggesting that the myocardial infarction is the primary event. 2. Congestive heart failure. 3. Profound anemia. 4. Yuridia's syndrome. 5. Chronic kidney disease. 6. Interstitial fibrosis. 7. Paroxysmal atrial fibrillation. 8. Thoracic compression fracture. 9. Hypothyroidism. 10. Head tremor. PLAN: Admit the patient to inpatient status on telemetry. Continue with IV diuretics, she got 1 dose before getting her first blood transfusion and we will order a second dose between the 2nd units of blood. Continue with IV b.i.d. Lasix as well. Obtain an Echo, 2D only to confirm any regional wall motion abnormalities and EF. Doppler is not needed since she just had this last Echo done 3 months ago here. Begin treatment for an ND with 4 baby aspirin and then continuing one baby aspirin daily, start Lipitor now, start beta blockers. Even though she had a heme-negative stool result from a guaiac test sent from the ER, with this profound of an anemia, we will be very careful about using full dose anticoagulants. We will start prophylactic dose of heparin subcutaneous. Follow her troponin q.6h until it peaks. Follow BNP daily. Follow electrolytes daily. She admitted that she "drinks a lot of liquid daily because she thought it was necessary to flush out her kidneys." I will put her on a 2 liter limit of fluid intakeper day and order a low-salt diet of 2 grams (she also admits to salting her food). We will start sublingual nitroglycerin p.r.n. angina and also start topical nitro paste for treatment of the angina. 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 This was discussed today with Dr. Luis by phone. Continue her oral Prednisone 20 mg daily. Continue nebs. Continue Cytomel. DVT PROPHYLAXIS: Pharmacotherapy. CODE STATUS: FULL CODE. ATTESTATION: Patient is expected to be discharged or transferred to another facility within 96 hours: Yes. cc: Gerry Arce MD TD: 07/02/2020 16:49 MTDD
[2020-07-02] MEDS ORDERED: FAMOTIDINE 20 MG TABLET PO SCH (21:00)
[2020-07-02] MEDS ORDERED: LATANOPROST 0.005% OPHTH DROPS EACHEYE SCH (21:00)
[2020-07-02] MEDS: HEPARIN 5,000 UNIT/ML VIAL SUBQ SCH (21:51)
[2020-07-02] MEDS: CYCLOSPORINE EACHEYE SCH (22:21)
[2020-07-03] MEDS: SODIUM CHLORIDE FLUSH 0.9% 10 ML SYRINGE IVP SCH ×2 (00:30→08:07)
[2020-07-03] MEDS: NITROGLYCERIN 2% PASTE TOP SCH ×2 (05:39→11:26)
[2020-07-03 05:52] LABS: CALCIUM 8.3 mg/dL (8.5-10.3); CREATININE 2.5 mg/dL (0.4-1.0)
[2020-07-03 05:58] LABS: CHOL/HDL RATIO 2.4 (<4.4); CHOLESTEROL 186 mg/dL; HDL CHOLESTEROL 77 mg/dL; LDL CHOLESTEROL,CALCULATED 90 mg/dL; LDL/HDL RATIO 1.2 (<4.4); VLDL CHOLESTEROL 19 mg/dL
[2020-07-03] MEDS ORDERED: LIOTHYRONINE 5 MCG TABLET PO SCH (07:00)
[2020-07-03] MEDS ORDERED: predniSONE 20 MG TABLET PO SCH (08:00)
[2020-07-03] MEDS ORDERED: MULTIVITAMIN W/MINERALS TABLET PO SCH (08:00)
[2020-07-03] MEDS ORDERED: FERROUS GLUCONATE 324 MG TABLET PO SCH (08:00)
[2020-07-03] MEDS: METOPROLOL TARTRATE 25 MG TABLET PO SCH (08:03)
[2020-07-03] MEDS: CYCLOSPORINE EACHEYE SCH (08:06)
[2020-07-03 08:12] LABS: BASOPHILS % (AUTO) 0.2 %; HGB - HEMOGLOBIN 7.5 g/dL (12.0-16.0); LYMPHOCYTES # (AUTO) 0.2 10^3/uL (1.5-3.5); LYMPHOCYTES % (AUTO) 4.1 %; MEAN CORPUSCULAR HGB CONC 33.2 g/dL (32.0-36.0); MEAN CORPUSCULAR VOLUME 93.4 fL (81.0-99.0); MONOCYTES # (AUTO) 0.4 10^3/uL (0.0-1.0); MONOCYTES % (AUTO) 7.5 %; NEUTROPHILS # (AUTO) 4.4 10^3/uL (1.5-6.6); NEUTROPHILS % (AUTO) 86.2 %; PLT - PLATELET COUNT 160 10^3/uL (130-450); RED BLOOD COUNT 2.42 10^6/uL (4.20-5.40); RED CELL DISTRIBUTION WIDTH 17.4 % (12.0-15.0); WHITE BLOOD COUNT 5.1 x10^3/uL (4.8-10.8)
[2020-07-03] MEDS: HEPARIN 5,000 UNIT/ML VIAL SUBQ SCH (08:15)
[2020-07-03] MEDS ORDERED: polyethylene glycoL 3350 17 GM PACKET PO SCH (09:00)
[2020-07-03] MEDS ORDERED: CYCLOPHOSPHAMIDE 25 MG PO SCH (09:00)
[2020-07-03] MEDS ORDERED: DAPSONE 25 MG PO SCH (09:00)
[2020-07-03] MEDS ORDERED: FAMOTIDINE 20 MG TABLET PO SCH (09:00)
[2020-07-03] MEDS ORDERED: ASPIRIN EC 81 MG TABLET PO SCH (09:00)
[2020-07-03] MEDS ORDERED: FUROSEMIDE 40 MG/4 ML VIAL IVP SCH (09:00)
[2020-07-03] MEDS: IPRATROPIUM/ALBUTEROL 3 ML NEB INH SCH ×2 (09:06→12:00)
--- NOTE | 2020-07-03 09:14 | XRAY Report ---
PROCEDURE: Chest 1 View X-Ray INDICATIONS: F/U CHF TECHNIQUE: One view of the chest was acquired. COMPARISON: CXR 07/02/2020. CT chest 03/17/2020. FINDINGS: Surgical changes and devices: Cholecystectomy clips. Lungs and pleura: No pleural effusions or pneumothorax. Mild ill-defined scattered bilateral airspac e opacity is suspected. This is stable to slightly decreased. Emphysematous change. Mediastinum: Mediastinal contours appear unchanged. Heart size is normal. Bones and chest wall: No suspicious bony lesions. Overlying soft tissues appear unremarkable. IMPRESSION: Suspected ill-defined scattered bilateral airspace opacity is stable to slightly decreased. Reviewed by: Bulmaro Kay MD on 07/03/2020 8:12 AM [facility] Approved by: Bulmaro Kay MD on 07/03/2020 8:12 AM [facility] Station ID: [id number]
[2020-07-03] MEDS ORDERED: HEPARIN 25000UNITS/500ML (D5W) 25,000 UNIT/500 ML BAG IV SCH (10:00)
--- NOTE | 2020-07-03 10:36 | Discharge Plan ---
Discharge Plan Problem Reviewed?: Yes Disposition: 02 Transfer Acute Care Hosp Condition: Serious No Smoking: If you smoke, Please STOP! Call for help. Follow-up with: Gerry Arce MD [Primary Care Provider] -
--- NOTE | 2020-07-03 10:37 | DISCHARGE SUMMARY ---
Discharge Summary Admit Date: 07/02/20 Discharge Date: 07/03/20 Discharging Provider: Dr Farzana Oviedo Primary Care Provider: Dr Gerry Arce Code Status: Attempt Resuscitation Condition at Discharge: Serious Discharge Disposition: 02 Transfer Acute Care Hosp - [facility] History of Present Illness: This is an 89 y/o white female who lives alone, with a history of anemia (followed by Dr Frazier at [facility]), interstitial fibrosis, and chronic renal insufficiency (followed by Dr Luis at [facility]), who was recently diagnosed with Yuridia's Syndrome and started on Retuxin. In November 2019, she was hospitalized here with new onset Afib that was paroxysmal, had mid-scapular pain, ruled out for an NJ and was advised further outpatient cardiac work-up, which she says has not yet happened due to biopsies and work-up and Nephrology and Hematology appointments. Yesterday, she had a [facility] Heme appointment, was found to have a Hgb of 6 and was advised to return today for a blood transfusion. Overnight, however, she developed orthopnea and severe mid- scapular chest pain and presented to the ER. The Hgb is 5.2 and the first hs- troponin is elevated at 114. She was to be placed in Observation for a blood transfusion, but the second hs-troponin is back at 280 and she will be admitted to Inpatient status with diagnosis of acute NJ. - HOSPITAL COURSE Hospital Course: 1. Acute NSTEMI She was placed on telemetry. Her EKG showed sinus rhythm, new ST depressions in I and AVL, and T wave flattening in V4-V6. Her mid-scapular pain responded to sl NTG and she was started on NTPaste. She got 4 baby aspirin, Metoprolol and Lipitor STAT. Because of the Hgb, possible bleeding cause, she got Heparin sq. The subsequent hs-troponins were 1092, 1960, 2496. Her Rig Superintendent was notif ied of her acute NSTEMI. [place] was contacted to have her transferred for Cardiology care. The [facility] recommended iv Heparinization, which was done, and she was accepted in transfer by the Hospitalist team there, where she was transferred in stable condition by ambulance. 2. Acute on chronic diastolic heart failure Her CXR showed CHF. She received iv Lasix and had symptomatic improvement. A 2-D Echo was done that showed a preserved LVEF. 3. Profound anemia She received 2U of blood with Lasix iv after each unit. Hgb at the time of transfer was 7.5. 4. Yuridia's syndrome She was kept on her Predisone 20 mg/day dose. 5. CKD Her serum creat was 2.5, which is her baseline. 6. Interstitial pulmonary fibrosis As per Hx. Her O2 sat was 90% on R.A. at admission and improved to 98% on 2L per n.c. 7. Paroxysmal A.fib She was in sinus rhythm throughout this (brief) hospital stay. 8. Compression fracture of thoracic vertebra nontraumatic This was a new diagnosis found at the November 2019 hospitalization. 9. Hypothyroidism She was kept on her home Cytomel thyroid replacement dose. 10. Benign head tremor As per Hx. - ALLERGIES Allergies/Adverse Reactions: Allergies Allergy/AdvReac Type Severity Reaction Status Date / Time Sulfa (Sulfonamide Allergy Rash Verified 07/02/20 11:23 Antibiotics) - MEDICATIONS Home Medications: Ambulatory Orders Medication Instructions Recorded Confirmed Aspirin EC [Ecotrin] 81 mg PO DAILY 07/02/20 07/02/20 Carboxymethylcellulose Sodium 1 each OP PRN PRN 07/02/20 07/02/20 [Refresh Plus] Cyclophosphamide 25 mg PO DAILY 07/02/20 07/02/20 Cyclosporine [Restasis] 1 each OP BID 07/02/20 07/02/20 Dapsone 25 mg PO DAILY 07/02/20 07/02/20 Latanoprost [Xalatan] 1 drp EACHEYE DAILY 07/02/20 07/02/20 Liothyronine [Cytomel] 5 mcg PO QDAC 07/02/20 07/02/20 Mv-Mn/Folic AC/Calcium/Vit K1 1 tab PO DAILY 07/02/20 07/02/20 [Women 50 Plus Multivit Adv Tab] diltiaZEM CD [Cardizem Cd] 120 mg PO DAILY 07/02/20 07/02/20 predniSONE [Deltasone] 20 mg PO DAILY 07/02/20 07/02/20 - PHYSICAL EXAM AT DISCHARGE General Appearance: positive: No acute distress, Alert, Other (Head tremor. ) Eyes Bilateral: positive: Normal inspection, EOMI ENT: positive: ENT inspection nml, No signs of dehydration, Other (On O2 per nasal cannula) Neck: positive: Nml inspection, No JVD Respiratory: positive: No respiratory distress, Breath sounds nml Cardiovascular: positive: Regular rate & rhythm, No murmur Abdomen: positive: Non-tender, Nml bowel sounds, No distention Skin: positive: Warm, Dry, Pallor Extremities: positive: Other (1+ pedal edema) Neurologic/Psychiatric: positive: Oriented x3, Other (Head tremor present, otherwise non-focal) - LABS Result Diagrams: 07/03/20 05:34 07/03/20 05:34 - DIAGNOSTIC IMAGING Diagnostic Imaging Results: Final report reviewed - FOLLOW UP Follow Up: This will be determined after her stay at [facility]. - TIME SPENT Time Spent in Discharge (Minutes): 60
[2020-07-03 11:51] VITALS: BP 154/53
== END 2020-07-03 13:10 | disposition short-term general hospital (02) | DRG 280 ==
LOC: EDUNIT# → ED 07:30 → UNDOADMOB 11:40 → MS2 11:40 → OBSVTOIN 11:43 → UNDOADMOB 11:43
PROVIDERS: ADMIT Internal Medicine; ATTEND Internal Medicine
DX: I21.4 Non-ST elevation (NSTEMI) myocardial infarction (principal); I50.33 Acute on chronic diastolic (congestive) heart failure; M31.30 Wegener's granulomatosis without renal involvement; I13.0 Hypertensive heart and chronic kidney disease with heart failure and stage 1 through stage 4 chronic kidney disease, or unspecified chronic kidney disease; J84.10 Pulmonary fibrosis, unspecified; I50.9 Heart failure, unspecified; N18.9 Chronic kidney disease, unspecified; I48.0 Paroxysmal atrial fibrillation; M48.54XD Collapsed vertebra, not elsewhere classified, thoracic region, subsequent encounter for fracture with routine healing; D50.9 Iron deficiency anemia, unspecified; G25.2 Other specified forms of tremor; E03.9 Hypothyroidism, unspecified; E78.00 Pure hypercholesterolemia, unspecified; Z79.82 Long term (current) use of aspirin; Z79.52 Long term (current) use of systemic steroids; Z79.899 Other long term (current) drug therapy
CPT/HCPCS: 36415; 36430; 71045; 80048; 80053; 80061; 82272; 83735; 83880; 84484; 85025; 85379; 85520; 85610; 86850; 86900; 86901; 86920; 87631; 93005; 93308; 94640; 96374; 99284; 99285; A9270; J7512; P9016; 0202U; 83721; 85027

== ENCOUNTER 2020-07-20 12:12 | Outpatient (CLI) | payer MEDICARE ==
[2020-07-20 13:55] LABS: ALBUMIN 3.8 g/dL (3.2-5.5); ALBUMIN/GLOBULIN RATIO 1.7 (1.0-2.2); BILIRUBIN,TOTAL 0.9 mg/dL (0.2-1.0); CALCIUM 8.8 mg/dL (8.5-10.3); CREATININE 2.8 mg/dL (0.4-1.0); POTASSIUM 4.8 mmol/L (3.5-5.0)
[2020-07-20 14:11] LABS: BASOPHILS % (AUTO) 0.2 %; EOSINOPHILS % (AUTO) 0.5 %; HGB - HEMOGLOBIN 10.9 g/dL (12.0-16.0); LYMPHOCYTES # (AUTO) 0.3 10^3/uL (1.5-3.5); LYMPHOCYTES % (AUTO) 3.6 %; MEAN CORPUSCULAR HEMOGLOBIN 33.1 pg (27.0-31.0); MEAN CORPUSCULAR HGB CONC 32.1 g/dL (32.0-36.0); MEAN CORPUSCULAR VOLUME 103.3 fL (81.0-99.0); MEAN PLATELET VOLUME 10.5 fL (7.9-10.8); MONOCYTES # (AUTO) 0.6 10^3/uL (0.0-1.0); MONOCYTES % (AUTO) 6.9 %; NEUTROPHILS # (AUTO) 7.6 10^3/uL (1.5-6.6); NEUTROPHILS % (AUTO) 86.6 %; PLT - PLATELET COUNT 192 10^3/uL (130-450); RED BLOOD COUNT 3.29 10^6/uL (4.20-5.40); RED CELL DISTRIBUTION WIDTH 20.5 % (12.0-15.0); WHITE BLOOD COUNT 8.7 x10^3/uL (4.8-10.8)
== END 2020-07-20 23:59 | disposition home or self-care (01) ==
LOC: LAB.R 12:12
PROVIDERS: ATTEND Internal Medicine Nephrology
DX: N05.9 Unspecified nephritic syndrome with unspecified morphologic changes (principal); D70.9 Neutropenia, unspecified; D63.1 Anemia in chronic kidney disease
CPT/HCPCS: 80053; 85025

== ENCOUNTER 2020-07-26 08:00 | Outpatient (CLI) | payer MEDICARE ==
[2020-07-26 12:47] LABS: BASOPHILS % (AUTO) 0.4 %; EOSINOPHILS % (AUTO) 0.4 %; LYMPHOCYTES # (AUTO) 0.4 10^3/uL (1.5-3.5); LYMPHOCYTES % (AUTO) 5.2 %; MEAN CORPUSCULAR HEMOGLOBIN 34.5 pg (27.0-31.0); MEAN CORPUSCULAR HGB CONC 32.4 g/dL (32.0-36.0); MEAN CORPUSCULAR VOLUME 106.6 fL (81.0-99.0); MEAN PLATELET VOLUME 10.4 fL (7.9-10.8); MONOCYTES # (AUTO) 0.5 10^3/uL (0.0-1.0); MONOCYTES % (AUTO) 5.4 %; NEUTROPHILS # (AUTO) 7.3 10^3/uL (1.5-6.6); NEUTROPHILS % (AUTO) 86.1 %; PLT - PLATELET COUNT 237 10^3/uL (130-450); RED CELL DISTRIBUTION WIDTH 20.1 % (12.0-15.0); WHITE BLOOD COUNT 8.4 x10^3/uL (4.8-10.8)
[2020-07-26 13:15] LABS: CALCIUM 8.5 mg/dL (8.5-10.3); CREATININE 2.8 mg/dL (0.4-1.0)
== END 2020-07-26 23:59 ==
LOC: LAB.R 08:00
PROVIDERS: ATTEND Internal Medicine Nephrology
DX: N05.9 Unspecified nephritic syndrome with unspecified morphologic changes (principal); D70.9 Neutropenia, unspecified
CPT/HCPCS: 36415; 80048; 85025

== ENCOUNTER 2020-08-02 08:00 | Outpatient (CLI) | payer MEDICARE ==
[2020-08-02 16:52] LABS: HGB - HEMOGLOBIN 7.9 g/dL (12.0-16.0); MEAN CORPUSCULAR HGB CONC 32.2 g/dL (32.0-36.0); MEAN CORPUSCULAR VOLUME 108.4 fL (81.0-99.0); RED BLOOD COUNT 2.26 10^6/uL (4.20-5.40); WHITE BLOOD COUNT 8.3 x10^3/uL (4.8-10.8)
[2020-08-02 17:03] LABS: CALCIUM 8.8 mg/dL (8.5-10.3)
== END 2020-08-02 08:01 | disposition home or self-care (01) ==
LOC: LAB.R 08:00
PROVIDERS: ATTEND Internal Medicine Nephrology
DX: N05.9 Unspecified nephritic syndrome with unspecified morphologic changes (principal); D70.9 Neutropenia, unspecified
CPT/HCPCS: 80048; 85027

== ENCOUNTER 2020-08-09 13:00 | Outpatient (CLI) | payer MEDICARE ==
[2020-08-09 14:05] LABS: HGB - HEMOGLOBIN 10.7 g/dL (12.0-16.0); MEAN CORPUSCULAR HEMOGLOBIN 33.2 pg (27.0-31.0); MEAN CORPUSCULAR HGB CONC 31.6 g/dL (32.0-36.0); MEAN CORPUSCULAR VOLUME 105.3 fL (81.0-99.0); RED BLOOD COUNT 3.22 10^6/uL (4.20-5.40); RED CELL DISTRIBUTION WIDTH 19.6 % (12.0-15.0); WHITE BLOOD COUNT 12.9 x10^3/uL (4.8-10.8)
[2020-08-09 14:10] LABS: CREATININE 2.7 mg/dL (0.4-1.0)
== END 2020-08-09 23:59 | disposition home or self-care (01) ==
LOC: LAB.R 13:00
PROVIDERS: ATTEND Internal Medicine Nephrology
DX: N05.9 Unspecified nephritic syndrome with unspecified morphologic changes (principal); D70.9 Neutropenia, unspecified; D63.1 Anemia in chronic kidney disease
CPT/HCPCS: 80048; 85027

== ENCOUNTER 2020-08-16 14:30 | Outpatient (CLI) | payer MEDICARE ==
[2020-08-16 15:26] LABS: BASOPHILS % (AUTO) 0.4 %; HGB - HEMOGLOBIN 10.3 g/dL (12.0-16.0); LYMPHOCYTES # (AUTO) 0.2 10^3/uL (1.5-3.5); LYMPHOCYTES % (AUTO) 2.6 %; MEAN CORPUSCULAR HEMOGLOBIN 34.9 pg (27.0-31.0); MEAN CORPUSCULAR VOLUME 109.2 fL (81.0-99.0); MEAN PLATELET VOLUME 10.1 fL (7.9-10.8); MONOCYTES # (AUTO) 0.2 10^3/uL (0.0-1.0); MONOCYTES % (AUTO) 2.6 %; NEUTROPHILS # (AUTO) 7.8 10^3/uL (1.5-6.6); NEUTROPHILS % (AUTO) 92.7 %; PLT - PLATELET COUNT 222 10^3/uL (130-450); RED BLOOD COUNT 2.95 10^6/uL (4.20-5.40); RED CELL DISTRIBUTION WIDTH 21.4 % (12.0-15.0); WHITE BLOOD COUNT 8.4 x10^3/uL (4.8-10.8)
[2020-08-16 15:31] LABS: CALCIUM 8.7 mg/dL (8.5-10.3); CREATININE 2.7 mg/dL (0.4-1.0)
[2020-08-16 15:53] LABS: RBC MORPHOLOGY (MULTIPLE) 2+ ANISOCYTOSIS (NORMAL)
[2020-08-16 15:54] LABS: PLATELET ESTIMATE, MANUAL NORMAL (130-450,000) (NORMAL); PLATELET MORPHOLOGY NORMAL APPEARANCE (NORMAL)
== END 2020-08-16 23:59 | disposition home or self-care (01) ==
LOC: LAB.R 14:30
PROVIDERS: ATTEND Internal Medicine Nephrology
DX: N05.9 Unspecified nephritic syndrome with unspecified morphologic changes (principal); D70.9 Neutropenia, unspecified
CPT/HCPCS: 80048; 85025

== ENCOUNTER 2020-08-23 08:00 | Outpatient (CLI) | payer MEDICARE ==
[2020-08-23 14:12] LABS: CALCIUM 9.4 mg/dL (8.5-10.3); CREATININE 2.6 mg/dL (0.4-1.0)
[2020-08-23 14:13] LABS: BASOPHILS # (AUTO) 0.1 10^3/uL (0.0-0.1); BASOPHILS % (AUTO) 0.9 %; EOSINOPHILS % (AUTO) 0.2 %; HGB - HEMOGLOBIN 10.8 g/dL (12.0-16.0); LYMPHOCYTES # (AUTO) 0.4 10^3/uL (1.5-3.5); LYMPHOCYTES % (AUTO) 4.4 %; MEAN CORPUSCULAR HEMOGLOBIN 34.5 pg (27.0-31.0); MEAN CORPUSCULAR HGB CONC 31.8 g/dL (32.0-36.0); MEAN CORPUSCULAR VOLUME 108.6 fL (81.0-99.0); MEAN PLATELET VOLUME 9.9 fL (7.9-10.8); MONOCYTES # (AUTO) 0.5 10^3/uL (0.0-1.0); MONOCYTES % (AUTO) 5.7 %; NEUTROPHILS # (AUTO) 7.5 10^3/uL (1.5-6.6); NEUTROPHILS % (AUTO) 87.5 %; PLT - PLATELET COUNT 316 10^3/uL (130-450); RED BLOOD COUNT 3.13 10^6/uL (4.20-5.40); RED CELL DISTRIBUTION WIDTH 18.4 % (12.0-15.0); WHITE BLOOD COUNT 8.6 x10^3/uL (4.8-10.8)
== END 2020-08-23 23:59 | disposition home or self-care (01) ==
LOC: LAB.R 08:00
PROVIDERS: ATTEND Internal Medicine Nephrology
DX: N05.9 Unspecified nephritic syndrome with unspecified morphologic changes (principal); D70.9 Neutropenia, unspecified
CPT/HCPCS: 80048; 85025

== ENCOUNTER 2020-08-31 11:50 | Outpatient (CLI) | payer MEDICARE ==
[2020-08-31 12:53] LABS: BASOPHILS # (AUTO) 0.1 10^3/uL (0.0-0.1); BASOPHILS % (AUTO) 1.3 %; EOSINOPHILS # (AUTO) 0.1 10^3/uL (0.0-0.7); EOSINOPHILS % (AUTO) 0.8 %; HGB - HEMOGLOBIN 11.5 g/dL (12.0-16.0); LYMPHOCYTES # (AUTO) 0.4 10^3/uL (1.5-3.5); LYMPHOCYTES % (AUTO) 5.7 %; MEAN CORPUSCULAR HEMOGLOBIN 34.4 pg (27.0-31.0); MEAN CORPUSCULAR HGB CONC 32.3 g/dL (32.0-36.0); MEAN CORPUSCULAR VOLUME 106.6 fL (81.0-99.0); MONOCYTES # (AUTO) 0.4 10^3/uL (0.0-1.0); MONOCYTES % (AUTO) 6.4 %; NEUTROPHILS # (AUTO) 5.1 10^3/uL (1.5-6.6); NEUTROPHILS % (AUTO) 83.8 %; PLT - PLATELET COUNT 262 10^3/uL (130-450); RED BLOOD COUNT 3.34 10^6/uL (4.20-5.40); RED CELL DISTRIBUTION WIDTH 16.3 % (12.0-15.0); WHITE BLOOD COUNT 6.1 x10^3/uL (4.8-10.8)
[2020-08-31 12:58] LABS: CALCIUM 9.2 mg/dL (8.5-10.3); CREATININE 2.6 mg/dL (0.4-1.0)
== END 2020-08-31 23:59 | disposition home or self-care (01) ==
LOC: LAB.R 11:50
PROVIDERS: ATTEND Family Medicine
DX: N05.9 Unspecified nephritic syndrome with unspecified morphologic changes (principal); D70.9 Neutropenia, unspecified; D63.1 Anemia in chronic kidney disease
CPT/HCPCS: 80048; 85025

== ENCOUNTER 2020-09-15 08:00 | Outpatient (CLI) | payer MEDICARE ==
[2020-09-15 13:20] LABS: HCT - HEMATOCRIT 30.8 % (37.0-47.0); HGB - HEMOGLOBIN 10.1 g/dL (12.0-16.0); MEAN CORPUSCULAR HEMOGLOBIN 33.8 pg (27.0-31.0); MEAN CORPUSCULAR HGB CONC 32.8 g/dL (32.0-36.0); MEAN PLATELET VOLUME 10.1 fL (7.9-10.8); RED BLOOD COUNT 2.99 10^6/uL (4.20-5.40); RED CELL DISTRIBUTION WIDTH 14.6 % (12.0-15.0); WHITE BLOOD COUNT 3.9 x10^3/uL (4.8-10.8)
[2020-09-15 13:33] LABS: CREATININE 2.4 mg/dL (0.4-1.0); POTASSIUM 4.5 mmol/L (3.5-5.0)
== END 2020-09-15 23:59 | disposition home or self-care (01) ==
LOC: LAB.R 08:00
PROVIDERS: ATTEND Internal Medicine Nephrology
DX: N05.9 Unspecified nephritic syndrome with unspecified morphologic changes (principal); D63.1 Anemia in chronic kidney disease
CPT/HCPCS: 80048; 85027

== ENCOUNTER 2020-09-22 15:57 | Outpatient (CLI) | payer MEDICARE ==
[2020-09-22 16:36] LABS: CALCIUM 9.2 mg/dL (8.5-10.3); CREATININE 2.7 mg/dL (0.4-1.0); HCT - HEMATOCRIT 30.6 % (37.0-47.0); HGB - HEMOGLOBIN 9.9 g/dL (12.0-16.0); MEAN CORPUSCULAR HEMOGLOBIN 33.1 pg (27.0-31.0); MEAN CORPUSCULAR HGB CONC 32.4 g/dL (32.0-36.0); MEAN CORPUSCULAR VOLUME 102.3 fL (81.0-99.0); MEAN PLATELET VOLUME 9.4 fL (7.9-10.8); POTASSIUM 4.1 mmol/L (3.5-5.0); RED BLOOD COUNT 2.99 10^6/uL (4.20-5.40); RED CELL DISTRIBUTION WIDTH 14.2 % (12.0-15.0); WHITE BLOOD COUNT 6.1 x10^3/uL (4.8-10.8)
== END 2020-09-22 15:58 | disposition home or self-care (01) ==
LOC: LAB 15:57
PROVIDERS: ATTEND Family Medicine
DX: N05.9 Unspecified nephritic syndrome with unspecified morphologic changes (principal); D70.9 Neutropenia, unspecified; D63.1 Anemia in chronic kidney disease
CPT/HCPCS: 36415; 80048; 85027

== ENCOUNTER 2020-09-27 14:12 | Outpatient (CLI) | payer MEDICARE ==
--- NOTE | 2020-09-27 16:39 | Ultrasound Report ---
PROCEDURE: Carotid Doppler Complete INDICATIONS: CAROTID BRUIT, BILAT TECHNIQUE: Color and pulse Doppler interrogation was performed of both carotid systems, with image documentation and velocity measurements. COMPARISON: None. FINDINGS: Right side: Brachial blood pressure: 152/45 mm Hg. Common carotid artery peak systolic velocity: 117 cm/sec. Internal carotid artery peak systolic velocity: 123 cm/sec. Internal carotid artery end diastolic velocity: 23 cm/sec. External carotid artery peak systolic velocity: 138 cm/sec. ICA/CCA peak systolic ratio: 1.1 . Gallardo scale imaging description: Mild to moderate plaque at the bifurcation Percent internal carotid artery stenosis: Less than 50% . Vertebral artery: Flow direction is antegrade. Left side: Brachial blood pressure: 152/52 mm Hg. Common carotid artery peak systolic velocity: 122 cm/sec. Internal carotid artery peak systolic velocity: 89 cm/sec. Internal carotid artery end diastolic velocity: 16 cm/sec. External carotid artery peak systolic velocity: 265 cm/sec. ICA/CCA peak systolic ratio: 0.7 . Gallardo scale imaging description: Moderate plaque at the bifurcation. Percent internal carotid artery stenosis: Less than 50% . Vertebral artery: Flow direction is antegrade. IMPRESSION: Less than 50% stenosis of the internal carotid arteries bilaterally. Elevated external carotid peak systolic velocity particularly on the left suggestive of mild stenosis . As clinically indicated, further evaluation with CT neck may be obtained. The estimate of stenosis included in the report of the imaging study was calculated using the NASCET method Reviewed by: Farhana Younger MD on 09/27/2020 4:38 PM PDT Approved by: Farhana Younger MD on 09/27/2020 4:38 PM PDT Station ID: [id number]
== END 2020-09-27 14:13 | disposition home or self-care (01) ==
LOC: DI 14:12
PROVIDERS: ATTEND Family Medicine
DX: I65.23 Occlusion and stenosis of bilateral carotid arteries (principal)
CPT/HCPCS: 93880

== ENCOUNTER 2020-09-28 08:00 | Outpatient (CLI) | payer MEDICARE ==
[2020-09-28 15:41] LABS: HCT - HEMATOCRIT 28.8 % (37.0-47.0); HGB - HEMOGLOBIN 9.6 g/dL (12.0-16.0); MEAN CORPUSCULAR HEMOGLOBIN 33.7 pg (27.0-31.0); MEAN CORPUSCULAR HGB CONC 33.3 g/dL (32.0-36.0); MEAN CORPUSCULAR VOLUME 101.1 fL (81.0-99.0); MEAN PLATELET VOLUME 9.8 fL (7.9-10.8); RED BLOOD COUNT 2.85 10^6/uL (4.20-5.40); WHITE BLOOD COUNT 5.8 x10^3/uL (4.8-10.8)
[2020-09-28 15:47] LABS: CALCIUM 8.9 mg/dL (8.5-10.3); CREATININE 2.8 mg/dL (0.4-1.0); POTASSIUM 4.4 mmol/L (3.5-5.0)
== END 2020-09-28 23:59 | disposition home or self-care (01) ==
LOC: LAB.R 08:00
PROVIDERS: ATTEND Internal Medicine Nephrology
DX: N05.9 Unspecified nephritic syndrome with unspecified morphologic changes (principal); D70.9 Neutropenia, unspecified
CPT/HCPCS: 80048; 85027

== ENCOUNTER 2020-10-05 08:00 | Outpatient (CLI) | payer MEDICARE ==
[2020-10-05 17:50] LABS: BASOPHILS # (AUTO) 0.1 10^3/uL (0.0-0.1); BASOPHILS % (AUTO) 1.3 %; EOSINOPHILS # (AUTO) 0.1 10^3/uL (0.0-0.7); EOSINOPHILS % (AUTO) 1.9 %; HCT - HEMATOCRIT 32.8 % (37.0-47.0); HGB - HEMOGLOBIN 10.5 g/dL (12.0-16.0); LYMPHOCYTES # (AUTO) 0.6 10^3/uL (1.5-3.5); LYMPHOCYTES % (AUTO) 9.9 %; MEAN CORPUSCULAR HEMOGLOBIN 33.1 pg (27.0-31.0); MEAN CORPUSCULAR VOLUME 103.5 fL (81.0-99.0); MEAN PLATELET VOLUME 9.8 fL (7.9-10.8); MONOCYTES # (AUTO) 0.8 10^3/uL (0.0-1.0); MONOCYTES % (AUTO) 12.4 %; NEUTROPHILS # (AUTO) 4.7 10^3/uL (1.5-6.6); NEUTROPHILS % (AUTO) 73.2 %; PLT - PLATELET COUNT 416 10^3/uL (130-450); RED BLOOD COUNT 3.17 10^6/uL (4.20-5.40); RED CELL DISTRIBUTION WIDTH 14.7 % (12.0-15.0); WHITE BLOOD COUNT 6.4 x10^3/uL (4.8-10.8)
[2020-10-05 18:05] LABS: CALCIUM 9.4 mg/dL (8.5-10.3); CREATININE 2.5 mg/dL (0.4-1.0); POTASSIUM 4.7 mmol/L (3.5-5.0)
== END 2020-10-05 23:59 | disposition home or self-care (01) ==
LOC: LAB.WCP 08:00
PROVIDERS: ATTEND Internal Medicine Nephrology
DX: N05.9 Unspecified nephritic syndrome with unspecified morphologic changes (principal); D63.1 Anemia in chronic kidney disease; D70.9 Neutropenia, unspecified
CPT/HCPCS: 36415; 80048; 85025

== ENCOUNTER 2020-10-13 13:05 | Outpatient (CLI) | payer MEDICARE ==
[2020-10-13 14:06] LABS: HCT - HEMATOCRIT 31.3 % (37.0-47.0); HGB - HEMOGLOBIN 10.3 g/dL (12.0-16.0); MEAN CORPUSCULAR HEMOGLOBIN 33.8 pg (27.0-31.0); MEAN CORPUSCULAR HGB CONC 32.9 g/dL (32.0-36.0); MEAN CORPUSCULAR VOLUME 102.6 fL (81.0-99.0); MEAN PLATELET VOLUME 9.7 fL (7.9-10.8); RED BLOOD COUNT 3.05 10^6/uL (4.20-5.40); RED CELL DISTRIBUTION WIDTH 15.9 % (12.0-15.0); WHITE BLOOD COUNT 5.5 x10^3/uL (4.8-10.8)
[2020-10-13 14:14] LABS: CALCIUM 9.3 mg/dL (8.5-10.3); CREATININE 2.6 mg/dL (0.4-1.0); POTASSIUM 4.9 mmol/L (3.5-5.0)
== END 2020-10-13 23:59 | disposition home or self-care (01) ==
LOC: LAB.R 13:05
PROVIDERS: ATTEND Internal Medicine Nephrology
DX: N05.9 Unspecified nephritic syndrome with unspecified morphologic changes (principal); D70.9 Neutropenia, unspecified
CPT/HCPCS: 80048; 85027

== ENCOUNTER 2020-10-18 14:30 | Outpatient (CLI) | payer MEDICARE ==
[2020-10-18 15:53] LABS: BASOPHILS % (AUTO) 2.1 %; EOSINOPHILS % (AUTO) 4.5 %; HGB - HEMOGLOBIN 10.2 g/dL (12.0-16.0); LYMPHOCYTES % (AUTO) 23.5 %; MEAN CORPUSCULAR HEMOGLOBIN 32.6 pg (27.0-31.0); MEAN CORPUSCULAR HGB CONC 31.9 g/dL (32.0-36.0); MEAN CORPUSCULAR VOLUME 102.2 fL (81.0-99.0); MEAN PLATELET VOLUME 10.1 fL (7.9-10.8); MONOCYTES % (AUTO) 18.7 %; NEUTROPHILS % (AUTO) 50.9 %; PLT - PLATELET COUNT 345 10^3/uL (130-450); RED BLOOD COUNT 3.13 10^6/uL (4.20-5.40); RED CELL DISTRIBUTION WIDTH 15.1 % (12.0-15.0); WHITE BLOOD COUNT 2.9 x10^3/uL (4.8-10.8)
[2020-10-18 15:55] LABS: CREATININE 2.5 mg/dL (0.4-1.0); POTASSIUM 5.4 mmol/L (3.5-5.0)
[2020-10-18 16:16] LABS: ABNORMAL LYMPHS % (MANUAL) 0 %
[2020-10-18 17:09] LABS: BAND NEUTROPHILS % (MANUAL) 2 %; BASOPHILS % (MANUAL) 1 %; DIFFERENTIAL COMMENT MANUAL DIFFERENTIAL; EOSINOPHILS # (MANUAL) 0.1 10^3/uL (0-0.7); LYMPHOCYTES # (MANUAL) 0.7 10^3/uL (1.5-3.5); LYMPHOCYTES % (MANUAL) 23 %; MONOCYTES # (MANUAL) 0.6 10^3/uL (0.0-1.0); NEUTROPHILS # (MANUAL) 1.4 10^3/uL (1.5-6.6); PLATELET ESTIMATE, MANUAL NORMAL (130-450,000) (NORMAL); PLATELET MORPHOLOGY NORMAL APPEARANCE (NORMAL); WBC MORPHOLOGY (MULTIPLE) NORMAL APPEARANCE (NORMAL)
== END 2020-10-18 23:59 | disposition home or self-care (01) ==
LOC: LAB.R 14:30
PROVIDERS: ATTEND Internal Medicine Nephrology
DX: N05.9 Unspecified nephritic syndrome with unspecified morphologic changes (principal); D70.9 Neutropenia, unspecified; D63.1 Anemia in chronic kidney disease
CPT/HCPCS: 80048; 85025

== ENCOUNTER 2020-10-27 12:00 | Outpatient (CLI) | payer MEDICARE ==
[2020-10-27 13:06] LABS: HCT - HEMATOCRIT 33.7 % (37.0-47.0); HGB - HEMOGLOBIN 10.8 g/dL (12.0-16.0); MEAN CORPUSCULAR HEMOGLOBIN 32.5 pg (27.0-31.0); MEAN CORPUSCULAR VOLUME 101.5 fL (81.0-99.0); MEAN PLATELET VOLUME 10.7 fL (7.9-10.8); RED BLOOD COUNT 3.32 10^6/uL (4.20-5.40); RED CELL DISTRIBUTION WIDTH 14.4 % (12.0-15.0); WHITE BLOOD COUNT 3.3 x10^3/uL (4.8-10.8)
== END 2020-10-27 23:59 | disposition home or self-care (01) ==
LOC: LAB.R 12:00
PROVIDERS: ATTEND Internal Medicine Nephrology
DX: D70.9 Neutropenia, unspecified (principal); D63.1 Anemia in chronic kidney disease
CPT/HCPCS: 85027

== ENCOUNTER 2020-11-01 13:15 | Outpatient (CLI) | payer MEDICARE ==
[2020-11-01 13:59] LABS: HCT - HEMATOCRIT 31.6 % (37.0-47.0); HGB - HEMOGLOBIN 10.2 g/dL (12.0-16.0); MEAN CORPUSCULAR HEMOGLOBIN 32.5 pg (27.0-31.0); MEAN CORPUSCULAR HGB CONC 32.3 g/dL (32.0-36.0); MEAN CORPUSCULAR VOLUME 100.6 fL (81.0-99.0); MEAN PLATELET VOLUME 10.3 fL (7.9-10.8); RED BLOOD COUNT 3.14 10^6/uL (4.20-5.40); RED CELL DISTRIBUTION WIDTH 13.9 % (12.0-15.0)
[2020-11-01 14:05] LABS: CALCIUM 9.1 mg/dL (8.5-10.3); CREATININE 2.5 mg/dL (0.4-1.0); POTASSIUM 4.8 mmol/L (3.5-5.0)
== END 2020-11-01 23:59 | disposition home or self-care (01) ==
LOC: LAB.R 13:15
PROVIDERS: ATTEND Internal Medicine Nephrology
DX: N05.9 Unspecified nephritic syndrome with unspecified morphologic changes (principal); D70.9 Neutropenia, unspecified
CPT/HCPCS: 80048; 85027

== ENCOUNTER 2020-11-15 09:42 | Outpatient (CLI) | payer MEDICARE ==
[2020-11-15 10:07] LABS: BASOPHILS # (AUTO) 0.1 10^3/uL (0.0-0.1); BASOPHILS % (AUTO) 1.2 %; EOSINOPHILS # (AUTO) 0.3 10^3/uL (0.0-0.7); HCT - HEMATOCRIT 31.7 % (37.0-47.0); HGB - HEMOGLOBIN 10.4 g/dL (12.0-16.0); LYMPHOCYTES # (AUTO) 0.8 10^3/uL (1.5-3.5); LYMPHOCYTES % (AUTO) 12.6 %; MEAN CORPUSCULAR HGB CONC 32.8 g/dL (32.0-36.0); MEAN CORPUSCULAR VOLUME 97.5 fL (81.0-99.0); MEAN PLATELET VOLUME 9.1 fL (7.9-10.8); MONOCYTES # (AUTO) 0.6 10^3/uL (0.0-1.0); NEUTROPHILS # (AUTO) 4.7 10^3/uL (1.5-6.6); NEUTROPHILS % (AUTO) 72.7 %; PLT - PLATELET COUNT 255 10^3/uL (130-450); RED BLOOD COUNT 3.25 10^6/uL (4.20-5.40); RED CELL DISTRIBUTION WIDTH 13.7 % (12.0-15.0); WHITE BLOOD COUNT 6.5 x10^3/uL (4.8-10.8)
[2020-11-15 10:16] LABS: CREATININE 2.4 mg/dL (0.4-1.0)
[2020-11-21 22:41] LABS: ANCA SCREEN NEGATIVE (NEGATIVE)
== END 2020-11-15 09:43 | disposition home or self-care (01) ==
LOC: LAB 09:42
PROVIDERS: ATTEND Internal Medicine Nephrology
DX: D70.9 Neutropenia, unspecified (principal); D63.1 Anemia in chronic kidney disease; N05.9 Unspecified nephritic syndrome with unspecified morphologic changes; L93.2 Other local lupus erythematosus; I77.6 Arteritis, unspecified
CPT/HCPCS: 36415; 81599; 82565; 85025; 86021

== ENCOUNTER 2020-11-29 09:35 | Outpatient (CLI) | payer MEDICARE ==
[2020-11-29 09:58] LABS: HCT - HEMATOCRIT 29.6 % (37.0-47.0); HGB - HEMOGLOBIN 9.7 g/dL (12.0-16.0); MEAN CORPUSCULAR HEMOGLOBIN 32.7 pg (27.0-31.0); MEAN CORPUSCULAR HGB CONC 32.8 g/dL (32.0-36.0); MEAN CORPUSCULAR VOLUME 99.7 fL (81.0-99.0); MEAN PLATELET VOLUME 9.3 fL (7.9-10.8); RED BLOOD COUNT 2.97 10^6/uL (4.20-5.40); RED CELL DISTRIBUTION WIDTH 13.9 % (12.0-15.0); WHITE BLOOD COUNT 5.3 x10^3/uL (4.8-10.8)
[2020-11-29 10:06] LABS: CREATININE 2.5 mg/dL (0.4-1.0)
[2020-12-02 14:36] LABS: ANCA SCREEN NEGATIVE (NEGATIVE)
== END 2020-11-29 09:36 | disposition home or self-care (01) ==
LOC: LAB 09:35
PROVIDERS: ATTEND Internal Medicine Nephrology
DX: M31.30 Wegener's granulomatosis without renal involvement (principal); I77.6 Arteritis, unspecified; D70.9 Neutropenia, unspecified; D63.1 Anemia in chronic kidney disease; N05.9 Unspecified nephritic syndrome with unspecified morphologic changes
CPT/HCPCS: 36415; 81599; 82565; 85027; 86021

== ENCOUNTER 2020-12-14 09:36 | Outpatient (CLI) | payer MEDICARE ==
[2020-12-17 14:16] LABS: ANCA SCREEN NEGATIVE (NEGATIVE)
== END 2020-12-14 09:37 | disposition home or self-care (01) ==
LOC: LAB 09:36
PROVIDERS: ATTEND Internal Medicine Nephrology
DX: M31.30 Wegener's granulomatosis without renal involvement (principal); I77.6 Arteritis, unspecified
CPT/HCPCS: 36415; 81599; 86021

== ENCOUNTER 2020-12-15 08:00 | Outpatient (CLI) | payer MEDICARE ==
[2020-12-15 17:51] LABS: BASOPHILS # (AUTO) 0.1 10^3/uL (0.0-0.1); BASOPHILS % (AUTO) 1.3 %; EOSINOPHILS # (AUTO) 0.2 10^3/uL (0.0-0.7); EOSINOPHILS % (AUTO) 5.6 %; HCT - HEMATOCRIT 29.2 % (37.0-47.0); HGB - HEMOGLOBIN 9.5 g/dL (12.0-16.0); LYMPHOCYTES # (AUTO) 0.7 10^3/uL (1.5-3.5); LYMPHOCYTES % (AUTO) 16.6 %; MEAN CORPUSCULAR HEMOGLOBIN 32.5 pg (27.0-31.0); MEAN CORPUSCULAR HGB CONC 32.5 g/dL (32.0-36.0); MEAN PLATELET VOLUME 10.1 fL (7.9-10.8); MONOCYTES # (AUTO) 0.5 10^3/uL (0.0-1.0); NEUTROPHILS # (AUTO) 2.5 10^3/uL (1.5-6.6); NEUTROPHILS % (AUTO) 62.7 %; PLT - PLATELET COUNT 241 10^3/uL (130-450); RED BLOOD COUNT 2.92 10^6/uL (4.20-5.40); RED CELL DISTRIBUTION WIDTH 13.9 % (12.0-15.0); WHITE BLOOD COUNT 3.9 x10^3/uL (4.8-10.8)
[2020-12-15 17:57] LABS: CREATININE 2.7 mg/dL (0.4-1.0); POTASSIUM 4.5 mmol/L (3.5-5.0)
== END 2020-12-15 23:59 | disposition home or self-care (01) ==
LOC: LAB.WCP 08:00
PROVIDERS: ATTEND Internal Medicine Nephrology
DX: N05.9 Unspecified nephritic syndrome with unspecified morphologic changes (principal); D70.9 Neutropenia, unspecified; D63.1 Anemia in chronic kidney disease
CPT/HCPCS: 36415; 80048; 85025

== ENCOUNTER 2021-01-03 16:33 | Outpatient (CLI) | payer MEDICARE ==
[2021-01-03 16:57] LABS: BASOPHILS % (AUTO) 1.4 %; EOSINOPHILS % (AUTO) 3.9 %; HCT - HEMATOCRIT 29.2 % (37.0-47.0); HGB - HEMOGLOBIN 9.8 g/dL (12.0-16.0); LYMPHOCYTES % (AUTO) 23.5 %; MEAN CORPUSCULAR HGB CONC 33.6 g/dL (32.0-36.0); MEAN CORPUSCULAR VOLUME 98.3 fL (81.0-99.0); MEAN PLATELET VOLUME 9.3 fL (7.9-10.8); MONOCYTES % (AUTO) 20.3 %; NEUTROPHILS % (AUTO) 49.8 %; PLT - PLATELET COUNT 213 10^3/uL (130-450); RED BLOOD COUNT 2.97 10^6/uL (4.20-5.40); RED CELL DISTRIBUTION WIDTH 12.9 % (12.0-15.0); WHITE BLOOD COUNT 2.8 x10^3/uL (4.8-10.8)
[2021-01-03 17:02] LABS: SLIDE REVIEW? Indicated
[2021-01-03 17:05] LABS: ABNORMAL LYMPHS % (MANUAL) 0 %
[2021-01-03 17:06] LABS: CREATININE 2.8 mg/dL (0.4-1.0); POTASSIUM 4.5 mmol/L (3.5-5.0)
[2021-01-03 19:20] LABS: BAND NEUTROPHILS % (MANUAL) 1 %; BASOPHILS # (MANUAL) 0.1 10^3/uL (0-0.1); BASOPHILS % (MANUAL) 2 %; EOSINOPHILS # (MANUAL) 0.2 10^3/uL (0-0.7); LYMPHOCYTES # (MANUAL) 0.6 10^3/uL (1.5-3.5); LYMPHOCYTES % (MANUAL) 21 %; MONOCYTES # (MANUAL) 0.4 10^3/uL (0.0-1.0); NEUTROPHILS # (MANUAL) 1.6 10^3/uL (1.5-6.6)
[2021-01-03 19:21] LABS: DIFFERENTIAL COMMENT MANUAL DIFFERENTIAL; PLATELET ESTIMATE, MANUAL NORMAL (130-450,000) (NORMAL); PLATELET MORPHOLOGY NORMAL APPEARANCE (NORMAL); RBC MORPHOLOGY (MULTIPLE) 1+ ANISOCYTOSIS (NORMAL)
== END 2021-01-03 16:34 | disposition home or self-care (01) ==
LOC: LAB 16:33
PROVIDERS: ATTEND Internal Medicine Nephrology
DX: N05.9 Unspecified nephritic syndrome with unspecified morphologic changes (principal); D70.9 Neutropenia, unspecified; D63.1 Anemia in chronic kidney disease
CPT/HCPCS: 36415; 80048; 80053; 85025; 85610

== ENCOUNTER 2021-01-27 14:23 | Outpatient (CLI) | payer MEDICARE ==
[2021-01-27 15:12] LABS: BASOPHILS # (AUTO) 0.1 10^3/uL (0.0-0.1); BASOPHILS % (AUTO) 0.7 %; EOSINOPHILS # (AUTO) 0.2 10^3/uL (0.0-0.7); EOSINOPHILS % (AUTO) 3.1 %; HCT - HEMATOCRIT 30.8 % (37.0-47.0); HGB - HEMOGLOBIN 10.1 g/dL (12.0-16.0); LYMPHOCYTES # (AUTO) 0.9 10^3/uL (1.5-3.5); LYMPHOCYTES % (AUTO) 13.1 %; MEAN CORPUSCULAR HGB CONC 32.8 g/dL (32.0-36.0); MEAN CORPUSCULAR VOLUME 100.7 fL (81.0-99.0); MEAN PLATELET VOLUME 9.3 fL (7.9-10.8); MONOCYTES # (AUTO) 0.6 10^3/uL (0.0-1.0); MONOCYTES % (AUTO) 8.7 %; NEUTROPHILS # (AUTO) 5.1 10^3/uL (1.5-6.6); NEUTROPHILS % (AUTO) 73.7 %; PLT - PLATELET COUNT 222 10^3/uL (130-450); RED BLOOD COUNT 3.06 10^6/uL (4.20-5.40); RED CELL DISTRIBUTION WIDTH 12.6 % (12.0-15.0); WHITE BLOOD COUNT 6.9 x10^3/uL (4.8-10.8)
[2021-01-27 15:28] LABS: CREATININE 2.4 mg/dL (0.4-1.0); POTASSIUM 4.6 mmol/L (3.5-5.0)
[2021-01-31 22:01] LABS: ANCA SCREEN NEGATIVE (NEGATIVE)
== END 2021-01-27 14:24 | disposition home or self-care (01) ==
LOC: LAB 14:23
PROVIDERS: ATTEND Internal Medicine Nephrology
DX: M31.30 Wegener's granulomatosis without renal involvement (principal); N05.9 Unspecified nephritic syndrome with unspecified morphologic changes; D70.9 Neutropenia, unspecified; D63.1 Anemia in chronic kidney disease
CPT/HCPCS: 36415; 80048; 85025; 86021

== ENCOUNTER 2021-03-01 08:14 | Outpatient (CLI) | payer MEDICARE ==
[2021-03-01 08:30] LABS: HCT - HEMATOCRIT 32.3 % (37.0-47.0); HGB - HEMOGLOBIN 10.8 g/dL (12.0-16.0); MEAN CORPUSCULAR HEMOGLOBIN 33.6 pg (27.0-31.0); MEAN CORPUSCULAR HGB CONC 33.4 g/dL (32.0-36.0); MEAN CORPUSCULAR VOLUME 100.6 fL (81.0-99.0); MEAN PLATELET VOLUME 9.4 fL (7.9-10.8); RED BLOOD COUNT 3.21 10^6/uL (4.20-5.40); RED CELL DISTRIBUTION WIDTH 11.9 % (12.0-15.0); WHITE BLOOD COUNT 4.8 x10^3/uL (4.8-10.8)
[2021-03-01 08:43] LABS: CALCIUM 9.1 mg/dL (8.5-10.3); CREATININE 2.4 mg/dL (0.4-1.0); POTASSIUM 4.2 mmol/L (3.5-5.0)
== END 2021-03-01 08:15 | disposition home or self-care (01) ==
LOC: LAB 08:14
PROVIDERS: ATTEND Internal Medicine Nephrology
DX: I77.6 Arteritis, unspecified (principal); D70.9 Neutropenia, unspecified; N05.9 Unspecified nephritic syndrome with unspecified morphologic changes
CPT/HCPCS: 36415; 80048; 81599; 85027; 86021

== ENCOUNTER 2021-03-31 07:37 | Outpatient (CLI) | payer MEDICARE ==
[2021-03-31 08:20] LABS: HCT - HEMATOCRIT 34.1 % (37.0-47.0); HGB - HEMOGLOBIN 11.4 g/dL (12.0-16.0); MEAN CORPUSCULAR HEMOGLOBIN 33.4 pg (27.0-31.0); MEAN CORPUSCULAR HGB CONC 33.4 g/dL (32.0-36.0); MEAN PLATELET VOLUME 9.1 fL (7.9-10.8); RED BLOOD COUNT 3.41 10^6/uL (4.20-5.40); RED CELL DISTRIBUTION WIDTH 12.3 % (12.0-15.0); WHITE BLOOD COUNT 6.1 x10^3/uL (4.8-10.8)
[2021-03-31 08:38] LABS: ALBUMIN/GLOBULIN RATIO 1.4 (1.0-2.2); ALKALINE PHOSPHATASE 59 IU/L (42-121); ALT ALANINE AMINOTRANSFERASE 18 IU/L (10-60); AST ASPARTATE AMINOTRANSFERASE 18 IU/L (10-42); BILIRUBIN,TOTAL 0.4 mg/dL (0.2-1.0); BUN - BLOOD UREA NITROGEN 50 mg/dL (6-20); CALCIUM 9.3 mg/dL (8.5-10.3); CARBON DIOXIDE - CO2 27 mmol/L (21-32); CHLORIDE 104 mmol/L (101-111); CHOL/HDL RATIO 5.2 (<4.4); CHOLESTEROL 276 mg/dL; CREATININE 2.3 mg/dL (0.4-1.0); GFR - MDRD 20 (>89); GLUCOSE 100 mg/dL (70-100); HDL CHOLESTEROL 53 mg/dL; LDL CHOLESTEROL,CALCULATED 185 mg/dL; LDL/HDL RATIO 3.5 (<4.4); POTASSIUM 4.3 mmol/L (3.5-5.0); SODIUM 141 mmol/L (135-145); TOTAL PROTEIN 6.8 g/dL (6.7-8.2); TRIGLYCERIDES 190 mg/dL; VLDL CHOLESTEROL 38 mg/dL
[2021-04-03 21:41] LABS: ANCA SCREEN NEGATIVE (NEGATIVE)
== END 2021-03-31 07:38 | disposition home or self-care (01) ==
LOC: LAB 07:37
PROVIDERS: ATTEND Family Medicine
DX: N05.9 Unspecified nephritic syndrome with unspecified morphologic changes (principal); M31.30 Wegener's granulomatosis without renal involvement; I13.0 Hypertensive heart and chronic kidney disease with heart failure and stage 1 through stage 4 chronic kidney disease, or unspecified chronic kidney disease; N18.4 Chronic kidney disease, stage 4 (severe); I50.9 Heart failure, unspecified; E78.5 Hyperlipidemia, unspecified; D63.1 Anemia in chronic kidney disease; I77.6 Arteritis, unspecified
CPT/HCPCS: 36415; 80048; 80053; 80061; 81599; 82607; 83721; 84207; 85027; 86021

== ENCOUNTER 2021-04-13 13:58 | Outpatient (CLI) | payer MEDICARE ==
[2021-04-13 14:18] LABS: BASOPHILS # (AUTO) 0.1 10^3/uL (0.0-0.1); EOSINOPHILS # (AUTO) 0.1 10^3/uL (0.0-0.7); EOSINOPHILS % (AUTO) 1.8 %; HCT - HEMATOCRIT 33.4 % (37.0-47.0); HGB - HEMOGLOBIN 11.1 g/dL (12.0-16.0); LYMPHOCYTES # (AUTO) 0.6 10^3/uL (1.5-3.5); LYMPHOCYTES % (AUTO) 9.6 %; MEAN CORPUSCULAR HGB CONC 33.2 g/dL (32.0-36.0); MEAN CORPUSCULAR VOLUME 99.4 fL (81.0-99.0); MEAN PLATELET VOLUME 9.3 fL (7.9-10.8); MONOCYTES # (AUTO) 0.5 10^3/uL (0.0-1.0); MONOCYTES % (AUTO) 7.6 %; NEUTROPHILS % (AUTO) 79.5 %; PLT - PLATELET COUNT 251 10^3/uL (130-450); RED BLOOD COUNT 3.36 10^6/uL (4.20-5.40); RED CELL DISTRIBUTION WIDTH 12.1 % (12.0-15.0); WHITE BLOOD COUNT 6.3 x10^3/uL (4.8-10.8)
[2021-04-13 14:27] LABS: CALCIUM 9.1 mg/dL (8.5-10.3); CREATININE 2.9 mg/dL (0.4-1.0); POTASSIUM 4.6 mmol/L (3.5-5.0)
== END 2021-04-13 13:59 | disposition home or self-care (01) ==
LOC: LAB 13:58
PROVIDERS: ATTEND Internal Medicine Nephrology
DX: I77.6 Arteritis, unspecified (principal); D70.9 Neutropenia, unspecified; D63.1 Anemia in chronic kidney disease; N05.9 Unspecified nephritic syndrome with unspecified morphologic changes
CPT/HCPCS: 36415; 80048; 81599; 85025; 86021

== ENCOUNTER 2021-04-14 14:08 | Outpatient (CLI) | payer MEDICARE ==
[2021-04-14 15:15] LABS: THYROID STIMULATING HORMONE 3.08 uIU/mL (0.34-5.60)
== END 2021-04-14 14:09 | disposition home or self-care (01) ==
LOC: LAB 14:08
PROVIDERS: ATTEND Internal Medicine Nephrology
DX: I50.32 Chronic diastolic (congestive) heart failure (principal); E03.9 Hypothyroidism, unspecified
CPT/HCPCS: 36415; 83880; 84443

== ENCOUNTER 2021-05-04 13:24 | Outpatient (CLI) | payer MEDICARE ==
[2021-05-04 13:34] LABS: BASOPHILS # (AUTO) 0.1 10^3/uL (0.0-0.1); EOSINOPHILS # (AUTO) 0.2 10^3/uL (0.0-0.7); HCT - HEMATOCRIT 32.9 % (37.0-47.0); LYMPHOCYTES # (AUTO) 0.6 10^3/uL (1.5-3.5); LYMPHOCYTES % (AUTO) 11.1 %; MEAN CORPUSCULAR HEMOGLOBIN 33.4 pg (27.0-31.0); MEAN CORPUSCULAR HGB CONC 33.4 g/dL (32.0-36.0); MEAN PLATELET VOLUME 9.2 fL (7.9-10.8); MONOCYTES # (AUTO) 0.5 10^3/uL (0.0-1.0); MONOCYTES % (AUTO) 9.1 %; NEUTROPHILS # (AUTO) 3.8 10^3/uL (1.5-6.6); NEUTROPHILS % (AUTO) 74.2 %; PLT - PLATELET COUNT 236 10^3/uL (130-450); RED BLOOD COUNT 3.29 10^6/uL (4.20-5.40); WHITE BLOOD COUNT 5.1 x10^3/uL (4.8-10.8)
[2021-05-04 13:47] LABS: CALCIUM 9.1 mg/dL (8.5-10.3); CREATININE 2.5 mg/dL (0.4-1.0); POTASSIUM 5.3 mmol/L (3.5-5.0)
== END 2021-05-04 23:59 | disposition home or self-care (01) ==
LOC: LAB 13:24
PROVIDERS: ATTEND Internal Medicine Nephrology
DX: I77.6 Arteritis, unspecified (principal); N05.9 Unspecified nephritic syndrome with unspecified morphologic changes; D70.9 Neutropenia, unspecified; D63.1 Anemia in chronic kidney disease
CPT/HCPCS: 36415; 80048; 81599; 85025; 86021

== ENCOUNTER 2021-06-01 13:43 | Outpatient (CLI) | payer MEDICARE ==
[2021-06-01 14:03] LABS: HCT - HEMATOCRIT 31.2 % (37.0-47.0); HGB - HEMOGLOBIN 10.6 g/dL (12.0-16.0); MEAN CORPUSCULAR HEMOGLOBIN 33.7 pg (27.0-31.0); MEAN PLATELET VOLUME 9.3 fL (7.9-10.8); RED BLOOD COUNT 3.15 10^6/uL (4.20-5.40); RED CELL DISTRIBUTION WIDTH 11.9 % (12.0-15.0); WHITE BLOOD COUNT 4.3 x10^3/uL (4.8-10.8)
[2021-06-01 14:11] LABS: CALCIUM 8.8 mg/dL (8.5-10.3); CREATININE 2.3 mg/dL (0.4-1.0); POTASSIUM 4.3 mmol/L (3.5-5.0)
== END 2021-06-01 13:44 | disposition home or self-care (01) ==
LOC: LAB 13:43
PROVIDERS: ATTEND Internal Medicine Nephrology
DX: I77.6 Arteritis, unspecified (principal); N05.9 Unspecified nephritic syndrome with unspecified morphologic changes; D70.9 Neutropenia, unspecified; D63.1 Anemia in chronic kidney disease
CPT/HCPCS: 36415; 80048; 81599; 85027; 86021

== ENCOUNTER 2021-06-21 08:00 | Outpatient (CLI) | payer MEDICARE | END 2021-06-21 23:59 | LOC: LAB.N 08:00 | PROVIDERS: ATTEND Physician Assistant Medical | DX: J15.9 Unspecified bacterial pneumonia (principal); Z20.822 Contact with and (suspected) exposure to COVID-19 ==

== ENCOUNTER 2021-06-21 13:46 | Outpatient (CLI) | payer MEDICARE ==
--- NOTE | 2021-06-21 15:29 | XRAY Report ---
PROCEDURE: Chest 2 View X-Ray INDICATIONS: FEBRIL WITH COUGH AND WEAKNESS, BACTERIAL PNEUMONIA TECHNIQUE: 2 view(s) of the chest. COMPARISON: Chest x-ray 08/05/2020 FINDINGS: Surgical changes and devices: None. Lungs and pleura: No pleural effusions or pneumothorax. Lungs are clear. Mediastinum: Mediastinal contours are normal. Heart size is normal. Bones and chest wall: No suspicious bony abnormalities. Soft tissues appear unremarkable. IMPRESSION: No acute pulmonary process. Reviewed by: Farhana Younger MD on 06/21/2021 3:28 PM PST Approved by: Farhana Younger MD on 06/21/2021 3:28 PM [facility] Station ID: [id number]
== END 2021-06-21 23:59 | disposition home or self-care (01) ==
LOC: DI.N 13:46
PROVIDERS: ATTEND Physician Assistant Medical
DX: R05.9 Cough, unspecified (principal); R50.9 Fever, unspecified; R53.1 Weakness

== ENCOUNTER 2021-06-23 08:00 | Outpatient (CLI) | payer MEDICARE ==
[2021-06-23 17:58] LABS: BASOPHILS # (AUTO) 0.1 10^3/uL (0.0-0.1); BASOPHILS % (AUTO) 0.5 %; EOSINOPHILS % (AUTO) 0.3 %; HGB - HEMOGLOBIN 10.7 g/dL (12.0-16.0); LYMPHOCYTES # (AUTO) 0.5 10^3/uL (1.5-3.5); LYMPHOCYTES % (AUTO) 4.6 %; MEAN CORPUSCULAR HEMOGLOBIN 31.8 pg (27.0-31.0); MEAN CORPUSCULAR HGB CONC 32.4 g/dL (32.0-36.0); MEAN CORPUSCULAR VOLUME 98.2 fL (81.0-99.0); MEAN PLATELET VOLUME 10.1 fL (7.9-10.8); MONOCYTES # (AUTO) 0.8 10^3/uL (0.0-1.0); MONOCYTES % (AUTO) 7.7 %; NEUTROPHILS % (AUTO) 86.3 %; PLT - PLATELET COUNT 315 10^3/uL (130-450); RED BLOOD COUNT 3.36 10^6/uL (4.20-5.40); RED CELL DISTRIBUTION WIDTH 11.9 % (12.0-15.0); WHITE BLOOD COUNT 10.4 x10^3/uL (4.8-10.8)
[2021-06-23 18:13] LABS: ALBUMIN 3.6 g/dL (3.2-5.5); ALBUMIN/GLOBULIN RATIO 0.9 (1.0-2.2); BILIRUBIN,TOTAL 0.7 mg/dL (0.2-1.0); CALCIUM 9.8 mg/dL (8.5-10.3); CREATININE 2.3 mg/dL (0.4-1.0); POTASSIUM 4.6 mmol/L (3.5-5.0); TOTAL PROTEIN 7.4 g/dL (6.7-8.2)
== END 2021-06-23 23:59 ==
LOC: LAB.WCP 08:00
PROVIDERS: ATTEND Family Medicine
DX: J20.9 Acute bronchitis, unspecified (principal); N18.4 Chronic kidney disease, stage 4 (severe); I77.6 Arteritis, unspecified; N05.9 Unspecified nephritic syndrome with unspecified morphologic changes
CPT/HCPCS: 36415; 80053; 85025; 86021

== ENCOUNTER 2021-06-28 09:58 | Outpatient (CLI) | payer MEDICARE ==
[2021-06-28 10:31] LABS: HCT - HEMATOCRIT 32.4 % (37.0-47.0); HGB - HEMOGLOBIN 10.6 g/dL (12.0-16.0); MEAN CORPUSCULAR HEMOGLOBIN 31.7 pg (27.0-31.0); MEAN CORPUSCULAR HGB CONC 32.7 g/dL (32.0-36.0); MEAN PLATELET VOLUME 9.5 fL (7.9-10.8); RED BLOOD COUNT 3.34 10^6/uL (4.20-5.40); RED CELL DISTRIBUTION WIDTH 11.9 % (12.0-15.0); WHITE BLOOD COUNT 10.4 x10^3/uL (4.8-10.8)
[2021-06-28 10:43] LABS: CALCIUM 9.5 mg/dL (8.5-10.3); CREATININE 2.5 mg/dL (0.4-1.0); POTASSIUM 4.2 mmol/L (3.5-5.0)
== END 2021-06-28 09:59 | disposition home or self-care (01) ==
LOC: LAB 09:58
PROVIDERS: ATTEND Internal Medicine Nephrology
DX: I77.6 Arteritis, unspecified (principal); D70.9 Neutropenia, unspecified; D63.1 Anemia in chronic kidney disease; N05.9 Unspecified nephritic syndrome with unspecified morphologic changes
CPT/HCPCS: 36415; 80048; 81599; 85027; 86021

== ENCOUNTER 2021-07-29 09:19 | Outpatient (CLI) | payer MEDICARE ==
[2021-07-29 09:39] LABS: BASOPHILS # (AUTO) 0.1 10^3/uL (0.0-0.1); BASOPHILS % (AUTO) 1.2 %; EOSINOPHILS # (AUTO) 0.2 10^3/uL (0.0-0.7); EOSINOPHILS % (AUTO) 3.8 %; LYMPHOCYTES # (AUTO) 0.5 10^3/uL (1.5-3.5); LYMPHOCYTES % (AUTO) 8.8 %; MEAN CORPUSCULAR HEMOGLOBIN 33.2 pg (27.0-31.0); MEAN CORPUSCULAR HGB CONC 33.3 g/dL (32.0-36.0); MEAN CORPUSCULAR VOLUME 99.7 fL (81.0-99.0); MEAN PLATELET VOLUME 9.7 fL (7.9-10.8); MONOCYTES # (AUTO) 0.6 10^3/uL (0.0-1.0); MONOCYTES % (AUTO) 10.1 %; NEUTROPHILS # (AUTO) 4.5 10^3/uL (1.5-6.6); NEUTROPHILS % (AUTO) 75.6 %; PLT - PLATELET COUNT 275 10^3/uL (130-450); RED BLOOD COUNT 3.31 10^6/uL (4.20-5.40); RED CELL DISTRIBUTION WIDTH 13.7 % (12.0-15.0)
[2021-07-29 09:45] LABS: CREATININE 2.4 mg/dL (0.4-1.0); POTASSIUM 4.3 mmol/L (3.5-5.0)
== END 2021-07-29 09:20 | disposition home or self-care (01) ==
LOC: LAB 09:19
PROVIDERS: ATTEND Internal Medicine Nephrology
DX: I77.6 Arteritis, unspecified (principal); N05.9 Unspecified nephritic syndrome with unspecified morphologic changes; D70.9 Neutropenia, unspecified; D63.1 Anemia in chronic kidney disease
CPT/HCPCS: 36415; 80048; 81599; 85025; 86021

== ENCOUNTER 2021-08-30 09:30 | Outpatient (CLI) | payer MEDICARE ==
[2021-08-30 09:48] LABS: BASOPHILS # (AUTO) 0.1 10^3/uL (0.0-0.1); BASOPHILS % (AUTO) 1.3 %; EOSINOPHILS # (AUTO) 0.3 10^3/uL (0.0-0.7); EOSINOPHILS % (AUTO) 5.3 %; HCT - HEMATOCRIT 33.5 % (37.0-47.0); LYMPHOCYTES # (AUTO) 0.6 10^3/uL (1.5-3.5); LYMPHOCYTES % (AUTO) 12.7 %; MEAN CORPUSCULAR HEMOGLOBIN 33.1 pg (27.0-31.0); MEAN CORPUSCULAR HGB CONC 32.8 g/dL (32.0-36.0); MEAN CORPUSCULAR VOLUME 100.9 fL (81.0-99.0); MEAN PLATELET VOLUME 9.6 fL (7.9-10.8); MONOCYTES # (AUTO) 0.5 10^3/uL (0.0-1.0); MONOCYTES % (AUTO) 10.2 %; NEUTROPHILS # (AUTO) 3.3 10^3/uL (1.5-6.6); NEUTROPHILS % (AUTO) 70.1 %; PLT - PLATELET COUNT 222 10^3/uL (130-450); RED BLOOD COUNT 3.32 10^6/uL (4.20-5.40); RED CELL DISTRIBUTION WIDTH 13.8 % (12.0-15.0); WHITE BLOOD COUNT 4.7 x10^3/uL (4.8-10.8)
[2021-08-30 10:02] LABS: CALCIUM 9.1 mg/dL (8.5-10.3); CREATININE 2.1 mg/dL (0.4-1.0); POTASSIUM 4.9 mmol/L (3.5-5.0)
== END 2021-08-30 09:31 | disposition home or self-care (01) ==
LOC: LAB 09:30
PROVIDERS: ATTEND Internal Medicine Nephrology
DX: I77.6 Arteritis, unspecified (principal); N05.9 Unspecified nephritic syndrome with unspecified morphologic changes; D70.9 Neutropenia, unspecified; D63.1 Anemia in chronic kidney disease
CPT/HCPCS: 36415; 80048; 81599; 85025; 86021

== ENCOUNTER 2021-09-24 14:01 | Outpatient (CLI) | payer MEDICARE ==
[2021-09-24 14:26] LABS: HCT - HEMATOCRIT 32.3 % (37.0-47.0); HGB - HEMOGLOBIN 11.1 g/dL (12.0-16.0); MEAN CORPUSCULAR HEMOGLOBIN 34.4 pg (27.0-31.0); MEAN CORPUSCULAR HGB CONC 34.4 g/dL (32.0-36.0); MEAN PLATELET VOLUME 9.6 fL (7.9-10.8); RED BLOOD COUNT 3.23 10^6/uL (4.20-5.40); RED CELL DISTRIBUTION WIDTH 12.8 % (12.0-15.0); WHITE BLOOD COUNT 5.7 x10^3/uL (4.8-10.8)
[2021-09-24 14:36] LABS: CALCIUM 8.9 mg/dL (8.5-10.3); CREATININE 2.6 mg/dL (0.4-1.0); POTASSIUM 4.5 mmol/L (3.5-5.0)
[2021-10-03 20:31] LABS: ANCA SCREEN NEGATIVE (NEGATIVE)
== END 2021-09-24 14:02 | disposition home or self-care (01) ==
LOC: LAB 14:01
PROVIDERS: ATTEND Internal Medicine Nephrology
DX: I77.6 Arteritis, unspecified (principal); D70.9 Neutropenia, unspecified; N05.9 Unspecified nephritic syndrome with unspecified morphologic changes; D63.1 Anemia in chronic kidney disease
CPT/HCPCS: 36415; 80048; 81599; 85027; 86021